=== PATIENT | female | born 1945 | race Asian ===

== ENCOUNTER 2019-02-05 10:57 | Emergency (ER) | payer OTHER ==
--- OUTSIDE RECORDS SUMMARY | 2019-02-05 10:59 | XMS REPORT ---
:1945 [facility] Address [address] [place] [address] Dr. Decker [address] [place] [id number] Care Team Providers Name Role Phone Unavailable Unavailable Unavailable Problems This patient has no known problems. Allergies, Adverse Reactions, Alerts This patient has no known allergies or adverse reactions. Medications This patient has no known medications.
--- OUTSIDE RECORDS SUMMARY | 2019-02-05 10:59 | XMS REPORT ---
:1945 Author Organization [employer] Care Team Providers Name Role Phone Cassia Muro Provider Role Unavailable Allergies, Adverse Reactions, Alerts Substance Reaction Event Type Amoxicillin Info Not Available Drug Allergy Tylenol # 3 Info Not Available Drug Allergy Lexiscan Info Not Available Drug Allergy Fluconazole Info Not Available Drug Allergy Problems Problem Type Condition Code Onset Dates Condition Status Assessment Acquired cyst of kidney N28.1 Active Problem History of breast cancer Z85.3 Active Assessment Microhematuria R31.29 Active Problem Thoracic aneurysm without mention I71.2 Active of rupture Problem Hematuria, microscopic R31.29 Active Problem Cystic thyroid nodule E04.1 Active Problem Low back pain M54.5 Active Problem Osteoarthritis of multiple joints, M15.9 Active unspecified osteoarthritis type Problem Family history of hypothyroidism Z83.49 Active Problem Other chronic pain G89.29 Active Problem Pain in left shoulder M25.512 Active Problem Leukopenia, unspecified type D72.819 Active Problem DDD (degenerative disc disease), M50.30 Active cervical Problem Microhematuria R31.29 Active Problem Multiple thyroid nodules E04.2 Active Problem Family history of Graves' disease Z83.49 Active Problem Urinary tract infection without N39.0 Active hematuria, site unspecified Problem Depression F32.9 Active Problem Abnormal weight loss R63.4 Active Problem Heart murmur R01.1 Active Problem Fatigue R53.83 Active Problem Allergic rhinitis J30.9 Active Problem Hyperlipidemia E78.5 Active Problem Benign essential HTN I10 Active Problem Osteoporosis screening Z13.820 Active Medications Medication Code Code Instructions Start End Date Status Dosage System Date Tramadol HCl ND 00990748088 50 MG Orally Active 1 tablet every 12 hours prn pain Letrozole ND 16823032726 2.5 MG Orally Active 1 tablet Once a day Lisinopril ND 22003491925 2.5 MG Orally Active 1 tablet Once a day Gemfibrozil ND 38930326647 600 MG Active TAKE 1 TABLET BY MOUTH EVERY DAY Lisinopril ND 23728839101 2.5 MG Orally Active 1 tablet twice a day Results No Known Results Summary Purpose eClinicalWorks Submission
--- OUTSIDE RECORDS SUMMARY | 2019-02-05 10:59 | XMS REPORT ---
:1945 Author Organization [employer] Care Team Providers Name Role Phone Perez, Na Provider Role Unavailable Allergies, Adverse Reactions, Alerts Substance Reaction Event Type Amoxicillin Info Not Available Drug Allergy Tylenol # 3 Info Not Available Drug Allergy Lexiscan Info Not Available Drug Allergy Fluconazole Info Not Available Drug Allergy Problems Problem Type Condition Code Onset Dates Condition Status Assessment Needs flu shot Z23 Active Assessment Leukopenia, unspecified type D72.819 Active Assessment DDD (degenerative disc disease), M50.30 Active cervical Assessment Osteoarthritis of multiple joints, M15.9 Active unspecified osteoarthritis type Assessment Microhematuria R31.29 Active Assessment Elevated serum globulin level R77.1 Active Assessment Acquired cyst of kidney N28.1 Active Assessment Multiple thyroid nodules E04.2 Active Assessment Hyperlipidemia E78.5 Active Problem History of breast cancer Z85.3 Active Assessment Benign essential HTN I10 Active Problem Thoracic aneurysm without mention I71.2 [...] Medications Medication Code Code Instructions Start End Status Dosage System Date Date Lisinopril [facility] 45016652540 2.5 MG Orally Active 1 tablet twice a day Letrozole [facility] 38578084535 2.5 MG Orally Active 1 tablet Once a day Lisinopril [facility] 96243083735 2.5 MG Orally Active 1 tablet Once a day Flonase [facility] 00085283720 50 MCG/ACT Inactive 1 spray in Nasally Once a each day nostril Tramadol HCl [facility] 54086869158 50 MG Orally Active 1 tablet every 12 hours prn pain Gemfibrozil [facility] 08456346070 600 MG Active TAKE 1 TABLET BY MOUTH EVERY DAY Gemfibrozil [facility] 61611573087 600 MG Orally Active 1 tablet once daily Results No Known Results Immunizations Vaccine Administration Date FluAD Nov 05, 2018 Summary Purpose eClinicalWorks Submission
--- NOTE | 2019-02-05 11:52 | ER ---
Nurse's Notes [facility] Name: Goldie Eduardo Age: 73 yrs Sex: Female : 1945 Arrival Date: 02/05/2019 Time: 10:59 Bed 19 Private MD: Diagnosis: Influenza due to certain identified influenza viruses;Cough Presentation: 02/05 11:08 Presenting complaint: Nonproductive cough, sinus congestion, headache, and subjective hb fever x 3 days. Denies SOB/N/V/D. Transition of care: patient was not received from another setting of care. Onset of symptoms was February 03, 2019. Risk Assessment: Do you want to hurt yourself or someone else? Patient reports no desire to harm self or others. Initial Sepsis Screen: Does the patient meet any 2 criteria? HR > 90 bpm. No. Patient's initial sepsis screen is negative. Does the patient have a suspected source of infection? No. Patient's initial sepsis screen is negative. Care prior to arrival: None. 11:08 Method Of Arrival: Ambulatory hb 11:08 Acuity: JEANNIE 4 hb Triage Assessment: 11:30 General: Behavior is calm, cooperative. ae4 Historical: - Allergies: 11:11 IV Contrast; hb 11:11 Codeine; hb 11:11 Amoxicillin; hb 11:11 Fluconazole; hb 11:11 Lexican; hb - Immunization history:: Adult Immunizations up to date. - Social history:: Smoking status: Patient/guardian denies using tobacco. - Ebola Screening: : No symptoms or risks identified at this time. Screenin:54 Abuse screen: Denies threats or abuse. Nutritional screening: No deficits noted. ae4 Tuberculosis screening: No symptoms or risk factors identified. Fall Risk None identified. Assessment: 11:27 General: Appears in no apparent distress. uncomfortable. Pain: Complains of pain in ae4 chest when coughing. Neuro: Level of Consciousness is awake, alert, obeys commands, Oriented to person, place, time, situation, Appropriate for age. Cardiovascular: Heart tones S1 S2 present Patient's skin is warm and dry. 11:27 Cardiovascular: Murmur present Rhythm is regular. Respiratory: Reports cough that is ae4 pain with cough. Respiratory: Airway is patent. GI: No signs and/or symptoms were reported involving the gastrointestinal system. Abdomen is round non-distended. : No signs and/or symptoms were reported regarding the genitourinary system. EENT: No signs and/or symptoms were reported regarding the EENT system. Derm: Skin is pale. Musculoskeletal: No signs and/or symptoms reported regarding the musculoskeletal system. Vital Signs: 11:11 BP 141 / 79; Pulse 97; Resp 16; Temp 98.9; Pulse Ox 97% on R/A; Weight 62.6 kg; Height hb 5 ft. 2 in. (157.48 cm); Pain 3/10; 11:54 BP 125 / 74; Pulse 89; Resp 18; Pulse Ox 96% on R/A; ae4 11:11 Body Mass Index 25.24 (62.60 kg, 157.48 cm) hb ED Course: 10:59 Patient arrived in ED. as 11:04 Cortez Mayberry FNP-C is [facility]. la1 11:04 Nino Alexandra MD is Attending Physician. la1 11:09 Triage completed. hb 11:10 Drew Joseph, RN is Primary Nurse. ae4 11:11 Arm band placed on. hb 11:27 Placed in gown. Bed in low position. Call light in reach. Side rails up X 1. Adult w/ ae4 patient. Pulse ox on. NIBP on. 11:59 Chest Pa And Lat (2 Views) XRAY In Process Unspecified. EDMS 12:17 No provider procedures requiring assistance completed. Patient did not have IV access ae4 during this emergency room visit. Administered Medications: No medications were administered Outcome: 11:51 Discharge ordered by . la1 12:17 Discharged to home ambulatory, with family. ae4 12:17 Condition: stable 12:17 Discharge instructions given to patient, Instructed on discharge instructions, follow up and referral plans. Demonstrated understanding of instructions, Prescriptions given X 1. 12:17 Instructed on medication usage. ae4 12:18 Patient left the ED. ae4 Signatures: Dispatcher [employer] EDMS Milka Aragon as Cortez Mayberry FNP-C [employer] TECH-Cla1 Sisi Roberson RN RN Drew Joseph, RN RN ae4 Corrections: (The following items were deleted from the chart) 12:01 11:59 Cardiovascular: Murmur present Rhythm is regular ae4 ae4 12:01 11:59 Respiratory: Airway is patent ae4 ae4 12: 11:59 GI: No signs and/or symptoms were reported involving the gastrointestinal system. ae4 Abdomen is round non-distended, ae4 :02 20:59 : No signs and/or symptoms were reported regarding the genitourinary system. ae4ae4 :02 20:59 EENT: No signs and/or symptoms were reported regarding the EENT system. ae4 ae4 :02 20:59 Respiratory: Reports cough that is pain with cough ae4 ae4 12:02 20:59 Derm: Skin is pale, ae4 ae4 :02 20:59 Musculoskeletal: No signs and/or symptoms reported regarding the musculoskeletal ae4 system. ae4
--- NOTE | 2019-02-05 11:53 | EDPHYS ---
Physician Documentation [facility] Name: Goldie Eduardo Age: 73 yrs Sex: Female : 1945 Arrival Date: 02/05/2019 Time: 10:59 Bed 19 Private MD: ED Physician Nino Alexandra HPI: 02/05 11:30 This 73 yrs old Female presents to ER via Ambulatory with complaints of Cough. la1 11:30 The patient or guardian reports cough, that is intermittent. Onset: The la1 symptoms/episode began/occurred 3 day(s) ago. Severity of symptoms: At their worst the symptoms were mild. Modifying factors: The symptoms are alleviated by nothing, the symptoms are aggravated by nothing. Associated signs and symptoms: Pertinent positives: rhinorrhea, Pertinent negatives: chest pain, fever, sore throat, vomiting. The patient has not experienced similar symptoms in the past. pt reports three day history of cough with occasional chills. Historical: - Allergies: 11:11 IV Contrast; hb 11:11 Codeine; hb 11:11 Amoxicillin; hb 11:11 Fluconazole; hb 11:11 Lexican; hb - Immunization history:: Adult Immunizations up to date. - Social history:: Smoking status: Patient/guardian denies using tobacco. - Ebola Screening: : No symptoms or risks identified at this time. ROS: 11:31 Constitutional: + chills la1 11:31 Eyes: Negative for injury, pain, redness, and discharge, Neck: Negative for injury, pain, and swelling, Cardiovascular: Negative for chest pain, palpitations, and edema, Abdomen/GI: Negative for abdominal pain, nausea, vomiting, diarrhea, and constipation, Back: Negative for injury and pain, : Negative for injury, bleeding, discharge, and swelling, MS/Extremity: Negative for injury and deformity, Neuro: Negative for headache, weakness, numbness, tingling, and seizure. 11:31 ENT: Positive for rhinorrhea. 11:31 Respiratory: Positive for cough. Exam: 11:32 Constitutional: This is a well developed, well nourished patient who is awake, alert, la1 and in no acute distress. Head/Face: Normocephalic, atraumatic. Eyes: Pupils equal round and reactive to light, extra-ocular motions intact. Periorbital areas with no swelling, redness, or edema. ENT: Nares patent. No nasal discharge, no septal abnormalities noted. Tympanic membranes are normal and external auditory canals are clear. Oropharynx with no redness, swelling, or masses, exudates, or evidence of obstruction, uvula midline. Mucous membranes moist. Neck: No Meningismus. Chest/axilla: Normal chest wall appearance and motion. Nontender with no deformity. No lesions are appreciated. 11:32 Respiratory: Lungs have equal breath sounds bilaterally, clear to auscultation No rales, rhonchi or wheezes noted. No increased work of breathing, no retractions or nasal flaring. Abdomen/GI: Soft, non-tender, with normal bowel sounds. No distension or tympany. No guarding or rebound. No evidence of tenderness throughout. MS/ Extremity: Pulses equal, no cyanosis. Neurovascular intact. Full, normal range of motion. Neuro: Awake and alert, GCS 15, oriented to person, place, time, and situation. . Normal gait. 11:32 Cardiovascular: Rate: normal, Pulses: Pulses are 3+ in right radial artery and left radial artery. Heart sounds: murmur, grade 2 over 6, pulmonic area, pt aware of murmur. Vital Signs: 11:11 BP 141 / 79; Pulse 97; Resp 16; Temp 98.9; Pulse Ox 97% on R/A; Weight 62.6 kg; Height hb 5 ft. 2 in. (157.48 cm); Pain 3/10; 11:54 BP 125 / 74; Pulse 89; Resp 18; Pulse Ox 96% on R/A; ae4 11:11 Body Mass Index 25.24 (62.60 kg, 157.48 cm) hb MDM: 11:04 Patient medically screened. la1 11:50 Data reviewed: vital signs, nurses notes, lab test result(s), I have discussed the la1 patient's presentation/case with the attending Emergency Department Physician; and as a result, I will discharge patient. Data interpreted: Pulse oximetry: on room air is 97 %. Interpretation: normal. Counseling: I had a detailed discussion with the patient and/or guardian regarding: the historical points, exam findings, and any diagnostic results supporting the discharge/admit diagnosis, lab results, the need for outpatient follow up, a family practitioner, to return to the emergency department if symptoms worsen or persist or if there are any questions or concerns that arise at home. 02/05 11:16 Order name: Flu; Complete Time: 11:50 la1 02/05 11:16 Order name: Chest Pa And Lat (2 Views) XRAY; Complete Time: 12:11 la1 Administered Medications: No medications were administered Disposition: 12:44 Co-signature as Attending Physician, Nino Alexandra MD I agree with the assessment and kdr plan of care. Disposition: 02/05/19 11:51 Discharged to Home. Impression: Influenza due to certain identified influenza viruses, Cough. - Condition is Stable. - Discharge Instructions: Influenza, Adult, [id number], Cough, Adult. - Prescriptions for Tessalon Perles 100 mg Oral Capsule - take 1 capsule by ORAL route every 8 hours As needed; 15 capsule. - Medication Reconciliation Form, Thank You Letter form. - Follow up: Private Physician; When: 2 - 3 days; Reason: Recheck today's complaints, Re-evaluation by your physician. - Problem is new. - Symptoms have improved. Signatures: Dispatcher [employer] EDNE Nino Alexandra MD MD kdr Cortez Mayberry, GIS PHYSICAL SCIENTIST-C GIS PHYSICAL SCIENTIST-Cla1 Sisi Roberson, NOREEN RN Drew Joseph RN RN ae4 Corrections: (The following items were deleted from the chart) 12:18 11:51 02/05/2019 11:51 Discharged to Home. Impression: Influenza due to certain ae4 identified influenza viruses; Cough. Condition is Stable. Forms are Medication Reconciliation Form, Thank You Letter, Antibiotic Education, Prescription Opioid Use. Follow up: Private Physician; When: 2 - 3 days; Reason: Recheck today's complaints, Re-evaluation by your physician. Problem is new. Symptoms have improved. la1
--- NOTE | 2019-02-05 12:07 | RAD REPORT ---
EXAM DESCRIPTION: RAD - Chest Pa And Lat (2 Views) - 02/05/2019 11:58 am CLINICAL HISTORY: COUGH, history of left breast cancer with mastectomy COMPARISON: February 2014 TECHNIQUE: PA and lateral views of the chest were obtained. FINDINGS: The lungs are clear. Left mastectomy surgical changes noted. Heart size is normal and nae tral vasculature is within normal limits. No pleural effusion or pneumothorax seen. No acute bony f inding noted. No aortic abnormality. No suspicious change from comparison. IMPRESSION: No acute cardiopulmonary process.
[2019-02-05 12:24] VITALS: TEMP 98.9
[2019-02-05 12:25] VITALS: BP 125/74; O2SAT 96
== END 2019-02-05 12:18 | disposition home or self-care (01) ==
LOC: ER 10:57
DX: J10.1 Influenza due to other identified influenza virus with other respiratory manifestations (principal); Z88.1 Allergy status to other antibiotic agents; Z88.5 Allergy status to narcotic agent; Z88.8 Allergy status to other drugs, medicaments and biological substances; Z91.041 Radiographic dye allergy status
CPT/HCPCS: 71046; 87804; 99283

== ENCOUNTER 2021-09-02 08:50 | Emergency (ER) | payer OTHER ==
--- OUTSIDE RECORDS SUMMARY | 2021-09-02 08:52 | XMS REPORT | Clinical Summary ---
:1945 Author Organization [facility] MD Ledezma [facility] Address [address] [place] [address] Care Team Providers Name Role Phone Johanna Espinosa MD Unavailable Connie Espinosa MD Unavailable MD Malorie Primary Care Provider Caitlyn Perez DO Unavailable Allergies Active Allergy Reactions Severity Noted Date Comments Amoxicillin Rash Low 10/19/2015 Codeine Other (See Comments) 10/19/2015 TYLENOL #3- pt reports makes h er feel "funny" Propoxyphene GI Intolerance 10/19/2015 N-Acetaminophen Fluconazole Rash Low 10/19/2015 Regadenoson Other (See Comments) 10/19/2015 Made ja ws, neck, back hurt, emilee ing, numbness Medications Medication Sig Dispensed Refills Start End Date Status Date fish oil-omega-3 Take 2 g by 0 A ctive fatty acids mouth twice 300-1,000 mg daily. Reported capsule on 01/25/2016 magnesium 250 mg Take 500 mg by 0 Active tab mouth daily. ascorbic acid, Take 1,000 mg by 0 Active vitamin C, (vitamin mouth daily. C) 1000 mg tablet lisinopril Take 2.5 mg by 0 Acti ve (PRINIVIL,ZESTRIL) mouth twice 2.5 mg tablet daily. gemfibrozil (LOPID) Take 600 mg by 0 Active 600 mg tablet mouth daily. TURMERIC ORAL Take 500 mg by 0 A ctive mouth daily. cyanocobalamin Take 1,000 mcg 0 Active (vitamin B-12) 1000 by mouth daily. mcg tablet calcium Take 2 tablets 0 Activ e carbonate-vitamin by mouth daily. D3 500 mg - 200 units (1,250 mg calcium carbonate) tablet zinc gluconate 50 Take 50 mg by 0 Active mg tablet mouth daily. vit A/vit C/vit Take by mouth 0 Active E/zinc/copper twice daily. (ICAPS AREDS ORAL) letrozole (Femara) Take 1 tablet 90 tablet 1 Active 2.5 mg (2.5 mg) by 1 tabletIndications: mouth daily. Intraductal carcinoma in situ of left breast, Estrogen receptor positive status (ER+) traMADol (ULTRAM) Take 50 mg by 0 Active 50 mg tablet mouth every 6 (six) hours as needed. calcium carbonate Take 600 mg by 0 0 Discontinued (OS-LILIYA) 600 mg mouth 2 (two) 22 (Not (1,500 mg) tablet times a day with Applicable) meals. multivitamin Take 1 tablet by 0 02/20/19 Discontinued (multivitamin) tab mouth daily. 22 (Not tablet Applicable ) diphenhydrAMINE Take 25 mg by 0 02/20/19 Discontinued (BENADRYL) 25 mg mouth every 8 22 (Not capsule (eight) hours as Maria E licable) needed for itching. Pt takes when taking Tramadol traMADol (ULTRAM) Take 50 mg by 0 11/24/19 Discontinued 50 mg tablet mouth as needed. 0 21 (Not Pt takes Applicable ) occasionally for back pain. letrozole (FEMARA) Take 2.5 mg by 0 Discontinued 2.5 mg tablet mouth daily. 22 (No t Applicable ) Active Problems Patient Care Coordination Note Formatting of this note might be differe nt from the original. Patient has 2 handicapped children. 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 Cancer Staging: Clinical stage from 01/10: Stage 0 (Tis (DCIS), N0, M0) - Signed by Johana Mayes MD on 01/25/2016 Pathologic stage from 01/25/2016: Stage 0 (Tis (DCIS), N0(i+), cM0) - Signed by Johana Mayes MD on 01/25/2016 Unspecified lump in unspecified breast 10/19/2015 Nipple discharge 10/19/2015 Multinodular goiter Family history of malignant neoplasm of thyroid Encounters Date Type Specialty Care Team Description 02/21/2021 Office Visit Breast Medical Leonela Rondon, Intraductal carcinoma in situ of left breast (Primary Dx); Oncology MD Estrogen receptor positive status (ER+) Hansa Rios PA 02/21/2021 Travel 02/20/2021 Telemedicine Endocrinology Jeremías Espana MD (Primary Dx) Cindy Christianson MD 02/13/2021 Ancillary Procedure Radiology Rowena Rios R, [employer] 02/13/2021 Travel 01/24/2021 Telephone Endocrinology Rere Hinojosa RN 11/23/2020 Office Visit Breast Surgical Jean, Intraductal Oncology MD Maria carcinoma in si tu of left breast 11/23/2020 Travel 11/16/2020 Ancillary Procedure Radiology Lucinda, Michelleuc ALESSIO Everett carcinoma in si tu of left breast 11/16/2020 Travel after 09/02/2020 Surgical History Surgery Date Site/Laterality Comments TOTAL ABDOMINAL HYSTERECTOMY W/ BILATERAL SALPINGOOPHORECTOMY BREAST BIOPSY COLONOSCOPY LA MASTECTOMY, PARTIAL 11/10/2015 Breast/Left Procedure : NEEDLE LOCALIZED, SEGME NTAL MASTECTOMY - NEE DLE LOC; Surgeon: Maria Pena MD; Location: [facility] OR; Service: BREAST LA BX/REMV,LYMPH NODE,DEEP AXILL 11/10/2015 Axilla/Left Procedure: SENTINEL NODE BIOPSY ; Surgeo n: Maria Pena MD; Lo cation: [facility]; Servic e: BREAST LA INTRAOPERATIVE SENTINEL LYMPH 11/10/2015 Breast/Left Procedure: INTRAOPERATIVE NODE ID W DYE INJECTION LYMPHATI C MAPPING; Surgeon: Maria Pena MD; Location: [facility] OR; Service: BREAST LA BREAST RECONSTRUC W OTHR 11/10/2015 Breast/Left Proc edure: RECONSTRUCTION TECHNIQ OF BREAST WITH O THER TECHNIQUE; Surg lilian: Isaak Grullon MD; Location: [facility]; Service: PLS - P LASTIC SURGERY LA MASTECTOMY, SIMPLE, COMPLETE 12/04/2015 Breast/Left Procedure: TOTAL MASTECTOMY; Lovely geon: Maria Pena MD; Location: [facility]; Service: BREAST Medical History Medical History Date Comments Arthritis Seasonal allergic rhinitis Aortic aneurysm without rupture Endometriosis Hypertension Hypercholesterolemia Diverticulosis of sigmoid colon Breast cancer Hyperlipidemia Irregular heart beat 2015 Cyst of breast -2015 Menopause 1987 Multinodular goiter 2017 H/O: miscarriage Family History Medical History Relation Name Comments Prostate cancer Brother dang Graves' disease Sister 1 Hypothyroidism Sister 2 Thyroid cancer Son Raul Eduardo PTC Relation Name Status Comments Brother dang Sister 1 Sister 2 Son Raul Eduardo Social History Tobacco Use Types Packs/Day Years Used Date Never Smoker 0 0 Smokeless Tobacco: Never Used Alcohol Use Standard Drinks/Week Comments No 0 (1 standard drink = 0.6 oz pure alcoho l) Sex Assigned at Date Recorded Not on file Job Start Date Occupation Industry Not on file Not on file Not on file Obstetrics History Para Term AB IAB SAB Ectopic Multiple Living Live Births 5 2 Date Outcome GA Total Labor/2nd/3rd Weight Sex Delivery Anes PTL Jimena A 1 A5 Name Clin Labor Para Para Comments Menarche 16 Parity 21 OCP use 5 yrs HRT use 14 yrs Breastfed for 3 mo Last Filed Vital Signs Vital Sign Reading Time Taken Comments Blood Pressure 122/69 02/21/2021 11:15 AM [employer] TRA[employer] OPERATOR Pulse 68 02/21/2021 11:15 AM [employer]AVY RAIL TRAIN OPERATOR Temperature 36.6 C (97.9 F) 02/21/2021 11:15 AM HEAVY RAIL TRAIN OPERATOR Respiratory Rate 18 02/21/2021 11:15 AM HEAVY RAIL TRAIN OPERATOR Oxygen Saturation - - Inhaled Oxygen Concentration - - Weight 62.9 kg (138 lb 10.7 oz) 02/21/2021 11:15 AM HEAVY RAIL TRAIN OPERATOR Height - - Body Mass Index 25.85 01/25/2020 1:18 PM HEAVY RAIL TRAIN OPERATOR Plan of Treatment Date Type Specialty Care Team Description 11/16/2021 Ancillary Procedure Radiology Hansa Rios PA [address], [place] [address] (Wo rk) 11/16/2021 Office Visit Oncology Hansa Rios PA [address], [place] [address] (Wo rk) Health Maintenance Due Date Last Done Comments COVID-19 Vaccination (3 - Pfizer risk 05/27/2020 04/29/2020 , 04/08/2020 series) Procedures Procedure Name Priority Date/Time Associated Diagnosis Comme nts THYROID STIMULATING Routine 02/13/2021 11:11 Multinodular goit er Results for this HORMONE AM HE[employer] RAIL TRAIN OPERATOR procedure are i n the results section. FREE THYROXINE Routine 02/13/2021 11:11 Multinodular goiter Re sults for this AM [employer] RAIL TRAIN OPERATOR procedure are i n the results section. US HEAD NECK SOFT Routine 02/13/2021 11:07 Multinodular goiter Results for this TISSUE AM HE[employer]Y RAIL TRAIN OPERATOR procedure are i n the results section. MAMMO DIGITAL Routine 11/16/2020 11:00 Intraductal carcinoma R esults for this DIAGNOSTIC RIGHT W AM CDT in situ of left proced ure are in BHARGAV breast the results section. after 09/02/2020 Results TSH (02/13/2021 11:11 AM HEAVY RAIL TRAIN OPERATOR) athologist Signature TSH 0.88 0.27 - 4.20 [facility] mcunit/mL [facility] Comment: Testing performed at [facility], [address], [place] [address] Specimen Anatomical Collection Method Collection Time Receive d Time (Source) Location / / Volume Laterality Blood 02/13/2021 11:11 02/13/2021 AM HEAVY RAIL TRAIN OPERATOR 2:45 PM HEAVY RAIL TRAIN OPERATOR Narrative [facility] - 02/13/2021 3: 21 PM HEAVY RAIL TRAIN OPERATOR Schedule US Neck And Labs At [facility] 1 To 7 Days Before Follow Up. Rowena Rios [employer]PER[employer] LAB BLOOD ORDERABLES Performing Organization Address City/State/[place] [address] [place] [address] Free T4 (02/13/2021 11:11 AM HEAVY RAIL TRAIN OPERATOR) athologist Signature T4 Free 1.19 0.93 - 1.70 [facility] ng/dL [facility] Comment: Testing performed at [facility], [address], [place] [address] Specimen Anatomical Collection Method Collection Time Receive d Time (Source) Location / / Volume Laterality Blood 02/13/2021 11:11 02/13/2021 AM HEAVY RAIL TRAIN OPERATOR 2:45 PM HEAVY RAIL TRAIN OPERATOR Narrative [facility] - 02/13/2021 3: 21 PM HEAVY RAIL TRAIN OPERATOR Schedule US Neck And Labs At [facility] 1 To 7 Days Before Follow Up. Rowena Rios [employer]PER[employer] LAB BLOOD ORDERABLES Performing Organization Address City/State/[place] [id number] [place] [address] US Head Neck Soft Tissue (02/13/2021 11:07 AM HEAVY RAIL TRAIN OPERATOR) Anatomical Region Laterality Modality Head, Neck Ultrasound Specimen (Source) Anatomical Collection Method Collection Time Re ceived Time Location / / Volume Laterality 02/13/2021 1:56 PM HEAVY RAIL TRAIN OPERATOR Impressions 02/13/2021 2:09 PM HEAVY RAIL TRAIN OPERATOR 1. Stable multinodular thyroid. 2. No adenopathy. Narrative 02/13/2021 2:09 PM HEAVY RAIL TRAIN OPERATOR FULL RESULT: Examination: US HEAD NECK SOFT TISSUE on 02/13/2021 11:07 AM Clinical History: Multinodular goiter Indication: Mass Comparison: Ultrasound, 01/25/20 Technique: Real-time ultrasound examinat ion of the neck soft tissues was performed. FINDINGS: Right Thyroid Lobe/Bed: Multiple hypoech oic nodules are stable relative to the prior exam. Right mid thyroid nodule measures 0.6 x 0.5 x 0.6 cm and is stable. Mixed cystic/solid nodule in the isthmus measures 1.5 x 0.8 x 1.5 cm. Left Thyroid Lobe/Bed: Left inferior kendrick e spongiform nodule is stable and measures 0.8 x 0.5 x 0.7 cm. Suprasternal and Superior Mediastinal: C lear. Right Lateral Neck: Clear. Left Lateral Neck: Clear. Submental to Cricoid: Clear. Procedure Note Latasha Farley MD - 02/13/2021 FULL RESULT: Examination: US HEAD NECK SOFT TISSUE on 02/13/2021 11:07 AM Clinical History: Multinodular goiter Indication: Mass Comparison: Ultrasound, 01/25/20 Technique: Real-time ultrasound examinat ion of the neck soft tissues was performed. FINDINGS: Right Thyroid Lobe/Bed: Multiple hypoech oic nodules are stable relative to the prior exam. Right mid thyroid nodule measures 0.6 x 0.5 x 0.6 cm and is stable. Mixed cystic/solid nodule in the isthmus measures 1.5 x 0.8 x 1.5 cm. Left Thyroid Lobe/Bed: Left inferior kendrick e spongiform nodule is stable and measures 0.8 x 0.5 x 0.7 cm. Suprasternal and Superior Mediastinal: C lear. Right Lateral Neck: Clear. Left Lateral Neck: Clear. Submental to Cricoid: Clear. IMPRESSION: 1. Stable multinodular thyroid. 2. No adenopathy. Rowena Rios [employer]PERVISOR IMG US ORDERABLES Mammography Digital Diagnostic Right with Bhargav (11/16/2020 11:00 AM CDT) Anatomical Region Laterality Modality Breast Right Mammography Specimen (Source) Anatomical Collection Method Collection Time Re ceived Time Location / / Volume Laterality 11/16/2020 11:07 AM CDT Impressions 11/16/2020 11:07 AM CDT There is no mammographic evidence of malignancy. Follow-up mammogram in 1 year is recomme nded. BI-RADS Category 2: Benign Finding(s) Narrative 11/16/2020 11:07 AM CDT CLINICAL INDICATION: Patient is a 75 year old female and is s een for history of breast cancer MAMMO DIGITAL DIAGNOSTIC RIGHT W BHARGAV Digital Mammogram evaluated with Compute r Aided Detection (CAD). COMPARISON: The present examination has been compare d to prior imaging studies performed at [facility] on 10/19/2015, 10/22/2016, 10/29/2017, 11/12/2018 and 11/17/2019. FINDINGS: The breast is extremely dense, which low ers the sensitivity of mammography. Vascular calcifications are present. No suspicious mass, asymmetry, calcification, or distortion is seen. The patient was notified of the results and their significance at the completion of today's imaging. Appropriate imaging follow up is recommended given t his patient's prior history of breast cancer. Tomosynthesis performed in CC and MLO pr ojections. Procedure Note Americo Castaneda MD - 11/16/2020 CLINICAL INDICATION: Patient is a 75 year old female and is s een for history of breast cancer MAMMO DIGITAL DIAGNOSTIC RIGHT W BHARGAV Digital Mammogram evaluated with Compute r Aided Detection (CAD). COMPARISON: The present examination has been compare d to prior imaging studies performed at [facility] on 10/19/2015, 10/22/2016, 10/29/2017, 11/12/2018 and 11/17/2019. FINDINGS: The breast is extremely dense, which low ers the sensitivity of mammography. Vascular calcifications are present. No suspicious mass, asymmetry, calcification, or distortion is seen. T he patient was notified of the results and their significance at the completion of today's imaging. Appropriate imaging follow up is recommended given t his patient's prior history of breast cancer. Tomosynthesis performed in CC and MLO pr ojections. IMPRESSION: There is no mammographic evidence of mal ignancy. Follow-up mammogram in 1 year is recomme nded. BI-RADS Category 2: Benign Finding(s) Maria Pena MD IMG MAMMOGRAPHY ORDERABLES after 09/02/2020 Insurance Payer Benefit Plan / Subscriber ID Effective Dates Phone Addre ss Type Group AETNA MEDICARE AETNA MEDICARE [id number] 2021-Presen [address] [place] [address] Advance Directives Code Status Date Activated Date Inactivated Comments Full Code 12/04/2015 2:34 PM 12/05/2015 3:50 PM Full Code 11/10/2015 1:30 PM 11/10/2015 7:40 PM Care Teams Vocational Rehabilitation Consultant Relationship Specialty Start Date End Date Johanna Espinosa, PCP - External Obstetrics/Gynecology 10/11/15 MD Referring Johanna Espinosa, PCP - External Follow Obstetrics/Gynecology MD Christiano Chaudhari Jose Espana MD PCP - General Endocrinology 10/07/[address] [place] [address] [phone] Taya Perez, DO Family Practice 11/19/[address] [place] [address] [place] [address]
--- OUTSIDE RECORDS SUMMARY | 2021-09-02 08:53 | XMS REPORT | Continuity of Care Document ---
:1945 Author Organization [facility] t Address [address] [place] [address] Care Team Providers Name Role Phone [phone] Primary Care Physician Unavailable Harshil Perez Attending Clinician Unavailable Alcon KOENIG Attending Clinician Audra Espinosa Attending Clinician ALCON Attending Clinician Unavailable Scot KOENIG Attending Clinician Meghan KOENIG Attending Clinician SCOT Attending Clinician Unavailable Cole White Attending Clinician Cole RIOS Attending Clinician Unavailable Ashish SORTO Attending Clinician Unavailable ROLF Attending Clinician Unavailable Rolf KOENIG Attending Clinician Lucinda MCCALLUM Attending Clinician LUCINDA Attending Clinician Unavailable Caitlyn Perez Attending Clinician Doctor Unassigned, Name Attending Clinician Unavailable Payers Payer Name Policy Type Policy Number Effective Date Expiration Date S benji [employer] MEDICARE ADV [id number] 2017 00:00:00 Problems Condition Condition Condition Status Onset Resolution Last Treating Co mments Source Name Details Category Date Date Treatment Clinician Date Inflammati Inflammati Disease Active U nivers on of on of 07-21 ity of joint of joint of 00:00: [place] both hands both hands 00 MD Tomy go[facility]al [facility] Erythema Erythema Disease Active Unive rs of vagina of vagina 07-21 ity of 00:00: MD Tomy goyal [facility] Osteopenia Osteopenia Disease Active U nivers 07-21 ity of 00:00: MD Tomy goyal [facility] Carcinoma Carcinoma Disease Active Uni vers in situ of in situ of 10-31 it y of left left 00:00: [place] breast breast 00 MD Tomy goyal [facility] Unspecifie Unspecifie Disease Active U nivers d lump in d lump in 10-18 ity of unspecif[place] breast MD Tomy goyal [facility] Nipple Nipple Disease Active Univers discharge discharge 10-18 ity of 00:00: 00 MD Tomy goyal [facility] Multinodul Multinodul Disease Active U nivers ar goiter ar goiter ity of [place] MD Tomy goyal [facility] Family Family Disease Active Univers history of history of it [place] of malignant malignant [place] neoplasm neoplasm of thyroid of thyroid An derso [facility] Allergies, Adverse Reactions, Alerts Allergy Allergy Status Severity Reaction(s) Onset Inactive Treating Comm ents Source Name Type Date Date Clinician PROPOXYP DRUG Active Rash Univers HENE 11-04 ity of N-ACETAM 00:00: [place] INOPHEN 00 [facility] REGADENO DRUG Active EP Effects Univ ers SON INGREDI 11-04 ity of 00:00: [place] 00 [facility] ACETAMIN DRUG Active Unknown-Cmnt Un johanna OPHEN-CO 11-04 ity of DEINE 00:00: 00 [facility] Amoxicil Propensi Active Rash Romeo s tyler ty to 10-18 ity of adverse 00:00: [place] reaction 00 MD nicole Huitron [facility] Codeine Propensi Active Other (See TYLENOL Un johanna ty to Comments) 10-18 #3- pt ity of adverse 00:00: reports [place] reaction 00 makes her MD rivera feel Anderso "funny" [facility] Propoxyp Propensi Active GI Univer s hene ty to Intolerance 10-18 ity o f N-Acetam adverse 00:00: [place] inophen reaction 00 MD nicole goyal [facility] Fluconaz Propensi Active Rash Univer s ole ty to 10-18 ity of adverse 00:00: [place] reaction 00 MD nicole goyal [facility] Regadeno Propensi Active Other (See Made Un johanna son ty to Comments) 10-18 jaws, ity of adverse 00:00: neck, [place] reaction 00 back MD nicole castillo, Tomy shaking, n numbness [facility] AMOXICIL DRUG Active Low Rash Univers TYLER INGREDI 10-18 ity of 00:00: [place] 00 [facility] FLUCONAZ DRUG Active Low Rash Univers OLE INGREDI 10-18 ity of 00:00: [place] 00 [facility] Tylenol Adverse Active Info Not Common # 3 Reaction Available [facility] Lexiscan Adverse Active Info Not Commo n Reaction Available [facility] Fluconaz Adverse Active Info Not Commo n ole Reaction Available [facility] Amoxicil Adverse Active Info Not Commo n tyler Reaction Available [facility] Aspirin Adverse Active Info Not Common Reaction Available [facility] Family History Family Member Diagnosis Comments Start Date Stop Date Source Natural brother Prostate cancer [facility] [place] [facility] Natural sister Graves' disease [facility] Natural sister Hypothyroidism [facility] Natural son Thyroid cancer [facility] [place] [facility] Social History Social Habit Start Date Stop Date Quantity Comments Source Alcohol intake 2021-02-20 2021-02-20 Current University of 00:00:00 00:00:00 non-drinker of Sury shah alcohol (finding) [facility] Tobacco use and 2018-10-14 2018-10-14 Smokeless tobacco Un iversity of exposure 00:00:00 00:00:00 non-user Sury azar [facility] Sex [birth year] Universit y of 00:00:00 00:00:00 Sury Ledezma [facility] Smoking Status Start Date Stop Date Source Never smoked tobacco [facility] Medications Ordered Filled Start Stop Current Ordering Indication Dosage Frequency Signature Comments Components Source Medication Medication Date Date Medication? Clinician (SIG) Name Name traMADol Yes 50mg Take 50 mg Uni vers (ULTRAM) 50 1-12 by mouth ity of mg tablet 20:48: every 6 [place] 00 (six) MD hours as Anderso needed. [facility] fish Yes 2g Take 2 g Univers oil-omega-3 1-12 by mouth ity of fatty acids 11:29: twice [place] 300-1,000 42 daily. mg capsule Reported [place] so on n 01/25/2016 [facility] ascorbic Yes 1000mg Take 1,000 U nivers acid, 1-12 mg by ity of vitamin C, 11:29: mouth [place] (vitamin C) 42 daily. 1000 mg Anderso tablet [facility] lisinopril Yes 2.5mg Take 2.5 Un johanna (PRINIVIL,Z 1-12 mg by ity of ESTRIL) 2.5 11:29: mouth [place] mg tablet 42 twice MD daily. Tomy [facility] gemfibrozil Yes 600mg Take 600 U nivers (LOPID) 600 1-12 mg by ity of mg tablet 11:29: mouth [place] 42 daily. MD Tomy goyal [facility] TURMERIC Yes 500mg Take 500 Univ ers ORAL 1-12 mg by ity of 11:29: mouth [place] 42 daily. MD Tomy goyal [facility] cyanocobala Yes 1000ug Take 1,000 Univers min 1-12 mcg by ity of (vitamin 11:29: mouth [place] B-12) 1000 42 daily. mcg tablet Tomy [facility] calcium Yes 2{tbl} Take 2 Univer s carbonate-v 1-12 tablets by it y of itamin D3 11:29: mouth [place] 500 mg - 42 daily. 200 units Tomy (1,250 mg n calcium Cancer carbonate) Mission tablet zinc Yes 50mg Take 50 mg Univers gluconate 1-12 by mouth ity of 50 mg 11:29: daily. [place] tablet 42 MD Tomy goyal [facility] vit A/vit Yes Take by Unive rs C/vit 1-12 mouth ity of E/zinc/alla 11:29: twice [place] er (ICAPS 42 daily. MD MCCOLLUM ORAL) Tomy goyal [facility] magnesium Yes 500mg Take 500 Uni vers 250 mg tab 1-11 mg by ity of 12:34: mouth [place] 10 daily. MD Tomy goyal [facility] multivitami 2021- No 1{tbl} Take 1 U nivers n 02-20 tablet by ity of (multivitam 12:34: 00:00 [place] in) tab 03 :00 daily. tablet Tomy goyal [facility] letrozole No 2.5mg Take 2.5 Un johanna (FEMARA) 02-20 mg by ity of 2.5 mg 12:33: 00:00 mouth [place] tablet 55 :00 daily. MD Tomy goyal [facility] diphenhydrA 2021- No 25mg Take 25 mg Univers MINE 02-20 by mouth ity of (BENADRYL) 12:33: 00:00 every 8 Jim as 25 mg 41 :00 (eight) capsule hours as T[place] needed for n itching. Cancer Pt takes Center when taking Tramadol calcium 2021- No 600mg Take 600 Univ ers carbonate 02-20 mg by ity of (OS-LILIYA) 12:33: 00:00 mouth 2 [place] 600 mg 23 :00 (two) (1,500 mg) times a Derrick o tablet day with n meals. [facility] letrozole Yes Estrogen 2.5mg Take 1 U nivers (Femara) 6-17 receptor tablet ity o f 2.5 mg 00:00: positive (2.5 mg) Jim as tablet 00 status by [facility] tra[facility] 2020- No 50mg Take 50 mg Un johanna (ULTRAM) 50 5-20 10-14 by mouth ity of mg tablet 00:00: 00:00 [place] needed. [place] 00 :00 Pt takes MD annette Huitron ly for n back pain. [facility] Tramadol Tramadol 2019- Yes Nathan 1 tablet Common HCl HCl 606 [place] [facility] 00:00: - [facility] 00 [facility] Lisinopril Lisinopril Yes Nathan 1 tablet Common [place] [facility] Letrozole Letrozole Yes Nathan 1 tablet Common [place] [facility] Gemfibrozil Gemfibrozil Yes Nathan TAKE 1 [facility] [place] TABLET BY [facility] EVERY DAY [facility] Gemfibrozil Gemfibrozil Yes Nathan 1 tablet [facility] [place] [facility] Lisinopril Lisinopril Yes Nathan TAKE 1 [facility] [place] TABLET BY [facility] TWICE A [facility] Vitamin B Vitamin B Yes Nathan not Co mmon Complex Complex [place] defined [facility] Turmeric Turmeric Yes Nathan not Comm on [place] defined [facility] Vitamin D Vitamin D Yes Nathan not Co mmon [place] defined [facility] Vitamin C Vitamin C Yes Nathan not Co mmon [place] defined [facility] Fish Oil Fish Oil Yes Nathan not Comm on [place] defined [facility] IBUPROFEN IBUPROFEN Yes Nathan not Co mmon [place] defined [facility] Magnesium Magnesium Yes Nathan not Co mmon [place] defined [facility] Immunizations Ordered Immunization Filled Immunization Date Status Commen ts Source Name Name FluAD FluAD 2018-11-05 Completed [facility] 00:00:00 [facility] Vital Signs Vital Name Observation Time Observation Value Comments Source Systolic blood 2021-02-21 17:15:09 122 mm[Hg] Univer sity of pressure [facility] Diastolic blood 2021-02-21 17:15:09 69 mm[Hg] Unive rsity of pressure [facility] Heart rate 2021-02-21 17:15:09 68 /min [facility] Body temperature 2021-02-21 17:15:09 36.61 Dinorah [facility] Respiratory rate 2021-02-21 17:15:09 18 /min [facility] Body weight 2021-02-21 17:15:09 62.9 kg [facility] MD [facility] BMI 2021-02-21 17:15:09 25.85 kg/m2 [facility] MD [facility] Procedures Procedure Date / Time Performing Clinician Source Performed FREE THYROXINE 2021-02-13 17:11:00 Rowena Rios [facility] THYROID STIMULATING 2021-02-13 17:11:00 Rowena Rios [facility] HORMONE [facility] US HEAD NECK SOFT 2021-02-13 17:07:00 Rowena Rios [facility] TISSUE [facility] MAMMO DIGITAL 2020-11-16 16:00:00 Steffanie Jane [place] o [facility] [place] DIAGNOSTIC RIGHT W ZECHARIAH L[facility] Plan of Care Planned Activity Planned Date Details Comments Source Future Scheduled 2021-08-03 COVID-19 Vaccination [facility] Test 04:38:22 (3 - Pfizer risk [facility] Cancer series) [code = Center COVID-19 Vaccination (3 - Pfizer risk series)] Encounters Start End Encounter Admission Attending Care Care Encounter Source Date/Time Date/Time Type Type Clinicians Facility Department ID 2021-08-07 Outpatient Perez, Na STLMLC STLMLC [id number] 2 Common 08:20:01 [facility] 2021-08-06 Outpatient Perez, Na STLMLC STLMLC [id number] 2 Common 15:19:00 [facility] 2021-07-18 Outpatient Perez, Na STLMLC STLMLC [id number] 2 Common 06:47:00 [facility] 2021-05-07 Outpatient Perez, Na STLMLC STLMLC [id number] 2 Common 16:33:01 [facility] 2021-03-07 Outpatient Perez, Na STLMLC STLMLC [id number] 2 Common 14:26:22 [id number] [facility] 2021-03-07 Outpatient Perez, Na STLMLC STLMLC [id number] 2 Common 14:25:50 [id number] [facility] 2021-03-07 Outpatient Perez, Na STLMLC STLMLC [id number] 2 Common 13:48:21 [id number] [facility] 2021-03-07 Outpatient Perez, Na STLMLC STLMLC [id number] 2 Common 13:26:33 [id number] [facility] 2021-03-07 Outpatient Perez, Na STLMLC STLMLC [id number] 2 Common 12:09:19 [id number] [facility] 2021-03-07 Outpatient Perez, Na STLMLC STLMLC [id number] 2 Common 12:06:43 [id number] [facility] 2021-03-07 Outpatient Perez, Na STLMLC STLMLC [id number] 2 Common 11:51:44 [id number] [facility] 2021-03-07 Outpatient Perez, Na STLMLC STLMLC [id number] 2 Common 11:45:44 [id number] [facility] 2021-03-07 Outpatient Perez, Na STLMLC STLMLC [id number] 2 Common 11:38:29 [id number] [facility] 2021-03-07 Outpatient Perez, Na STLMLC STLMLC [id number] 2 Common 11:07:03 [id number] [facility] 2021-08-06 2021-08-06 ambulatory STLMLC STLMLC [id number] Common 00:00:00 00:00:00 [facility] 2021-07-17 2021-07-17 ambulatory STLMLC STLMLC [id number] Common 00:00:00 00:00:00 [facility] 2021-07-16 2021-07-16 ambulatory STLMLC STLMLC [id number] Common 00:00:00 00:00:00 [facility] 2021-07-16 2021-07-16 ambulatory STLMLC STLMLC [id number] Common 00:00:00 00:00:00 [facility] 2021-05-31 2021-05-31 ambulatory STLMLC STLMLC [id number] Common 00:00:00 00:00:00 [facility] 2021-02-21 2021-02-21 Office Leonela Rondon 1.2.840.1 [id number] [facility] 11:40:00 12:00:00 Visit Hansa Rios 87603.1.1 ity of 3.412.2.7 [place] .3.847311 MD Posada8 [facility] 2021-02-21 2021-02-21 Outpatient JOSEFINA RONDON MDA MDA [id number] 11:10:59 11:10:59 LEONELA goyal 2021-02-21 2021-02-21 Travel 1.2.840.1 [id number] [facility] 00:00:00 00:00:00 [id number] 350.1.13.41 ity of 3.412.2.7 2.[place].7.3.698 [place] .3.967211 084.8 MD Posada8 [facility] 2021-02-20 2021-02-20 Telemedici Jose Ellison 1.2.840.1 [id number] [facility] 15:30:00 15:30:00 Cindy Nation 78053.1.1 ity of 3.412.2.7 [place] .3.659759 MD Posada8 [facility] 2021-02-20 2021-02-20 Outpatient JOSEFINA ELLISON MDA [facility] [id number] 14:57:13 15:03:33 JOSE goyal 2021-02-13 2021-02-13 Ancillary Gabriel 1.2.840.1 [id number] [facility] 10:00:00 11:00:00 Procedure Rowena Galvan 61286.1.1 i ty of 3.412.2.7 [place] .3.880352 MD [facility]8 [facility] 2021-02-13 2021-02-13 Outpatient JOSEFINA RIOS MDA MDA [id number] 10:11:38 10:11:38 ROWENA goyal 2021-02-13 2021-02-13 Outpatient JOSEFINA RIOS EJ MDA [id number] 10:11:15 10:11:15 ROWENA goyal 2021-02-13 2021-02-13 Travel 1.2.840.1 [id number] [id number] Univers 00:00:00 00:00:00 30931.1.1 350.1.13.41 ity of 3.412.2.7 2.2.7.3.698 [place] .3.283222 084.8 .8 [facility] 2021-01-29 2021-01-29 ambulatory STLMLC STLMLC [id number] Common 00:00:00 00:00:00 [facility] 2021-01-24 2021-01-24 Telephone Hinojosa, 1.2.840.1 [id number] Univers 00:00:00 00:00:00 Curtisha 26213.1.1 ity of 3.412.2.7 [place] .3.972319 .8 [facility] 2021-01-11 2021-01-11 ambulatory STLMLC STLMLC [id number] Common 00:00:00 00:00:00 [facility] 2021-01-08 2021-01-08 ambulatory STLMLC STLMLC [id number] Common 00:00:00 00:00:00 [facility] 2020-11-23 2020-11-23 Outpatient JOSEFINA BANSAL MDA MDA [id number] 10:03:13 11:23:23 MARIA goyal 2020-11-23 2020-11-23 Office Rolf, 1.2.840.1 [id number] [facility] 10:00:00 11:23:23 Visit Maria 32300.1.1 ity of 3.412.2.7 [place] .3.531356 MD Posada8 [facility] 2020-11-23 2020-11-23 Travel 1.2.840.1 [id number] Univers 00:00:00 00:00:00 10545.1.1 350.1.13.41 ity of 3.412.2.7 2.2.7.3.698 [place] .3.370803 084.8 .8 [facility] 2020-11-16 2020-11-16 Ancillary Brandan Jane.2.840.1 [id number] [facility] 10:00:00 11:00:00 Procedure Steffanie 96072.1.1 i ty of 3.412.2.7 [place] .3.202700 .8 [facility] 2020-11-16 2020-11-16 Outpatient EL LUCINDA [facility] [id number] 10:19:55 10:19:55 STEFFANIEHAYDEN Ledezma [facility] 2020-11-16 2020-11-16 Travel 1.2.840.1 [id number] [id number] Univers 00:00:00 00:00:00 94164.1.1 350.1.13.41 ity of 3.412.2.7 2.2.7.3.698 [place] .3.817896 084.8 .8 [facility] 2020-09-28 2020-09-28 Outpatient STLMLC STLMLC [id number] Common 00:00:00 00:00:00 [facility] 2020-08-02 2020-08-02 Outpatient STLMLC STLMLC [id number] Common 00:00:00 00:00:00 [facility] 2020-05-04 2020-05-04 Outpatient STLMLC STLMLC [id number] Common 00:00:00 00:00:00 [facility] 2020-04-29 2020-04-29 Outpatient [facility] [id number] Univers 13:25:00 13:25:00 [id number] ity of [facility] 2020-04-29 2020-04-29 Outpatient [facility] [id number] Univers 13:25:00 13:25:00 ity [facility] 2020-04-08 2020-04-08 Outpatient [facility] [id number] Univers 13:05:00 13:05:00 ity of [facility] 2020-01-13 2020-01-13 Outpatient STLMLC STLMLC [id number] Common 00:00:00 00:00:00 [facility] 2020-01-12 2020-01-12 Outpatient STLMLC STLMLC [id number] Common 00:00:00 00:00:00 [facility] 2020-01-03 2020-01-03 Outpatient STLMLC STLMLC [id number] Common 00:00:00 00:00:00 [facility] 2019-12-23 2019-12-23 Outpatient STLMLC STLMLC [id number] Common 00:00:00 00:00:00 [facility] 2019-11-29 2019-11-29 Outpatient STLMLC STLMLC [id number] Common 00:00:00 00:00:00 [facility] 2019-11-15 2019-11-15 Outpatient STLMLC STLMLC [id number] Common 00:00:00 00:00:00 [facility] 2019-11-09 2019-11-09 Outpatient STLMLC STLMLC [id number] Common 00:00:00 00:00:00 [facility] 2019-11-09 2019-11-09 Outpatient STLMLC STLMLC [id number] Common 00:00:00 00:00:00 [facility] 2019-10-26 2019-10-26 [facility] [id number] Common 09:39:00 09:39:00 [facility] 2019-10-25 2019-10-25 [facility] [id number] Common 15:46:00 15:46:00 t [facility] 2019-10-25 2019-10-25 Out[facility] [id number] Common 13:30:00 13:30:00 t [facility] 2019-09-30 2019-09-30 [facility] [id number] Common 10:40:00 10:40:[address] [facility] 2019-08-23 2019-08-23 Letter Taya Perez 1.2.840.114 [id number] 00:00:00 00:00:00 (Out) [facility] 350.1.13.10 [facility] 4.2.7.2.686 [id number] 2019-08-11 2019-08-11 Outpatient JOSEFINA RONDON MDA MDA [id number] 11:44:27 11:44:27 LEONELA goyal 2019-08-02 2019-08-02 Orders Doctor MALDONADO 1.2.840.114 [id number] 00:00:00 00:00:00 Only Unassigned, LUIS A 350.1.13.10 [place] [facility] 4.2.7.2.686 [id number] 2019-06-30 2019-06-30 [facility] [id number] Common 10:40:00 10:40:[address] [facility] 2019-04-05 2019-04-05 [facility] [id number] Common 16:47:00 16:47:[address] Sp[address] [facility] 2019-02-09 2019-02-09 [facility] [id number] Common 09:40:00 09:40:[address] Sp[address] [facility] 2019-01-13 2019-01-13 [facility] [id number] Common 09:00:00 09:00:00 t Specialty/U Sp gilmar Specialty rology - [facility]rology Clinic [facility] 2018-11-05 2018-11-05 [facility] [id number] Common 10:20:00 10:20:[address] Sp[address] [facility] 2018-09-24 2018-09-24 Orders Doctor MALDONADO 1Albino2.840.114 [id number] 00:00:00 00:00:00 Only Unassigned, LUIS A 350.1.13.10 [place] [facility] 4.2.7.2.686 [id number] 2018-07-16 2018-07-16 Out[facility] [id number] Common 08:20:00 08:20:[address] Sp[address] [facility] 2018-03-20 2018-03-20 [facility] [id number] Common 10:30:00 10:30:[address] Sp[address] [facility] 2018-03-05 2018-03-05 Out[facility] [id number] Common 16:27:00 16:27:00 t Specialty/U Sp gilmar Specialty rology - [facility] /Urology Clinic [facility] 2017-11-24 2017-11-24 [facility] [id number] Common 09:00:00 09:00:[address] Sp[address] [facility] 2017-09-15 2017-09-15 [facility] [id number] Common 10:30:00 10:30:[address] Sp[address] Drive [facility] 2017-08-19 2017-08-19 [facility] [id number] Common 14:30:00 14:30:[address] Sp[address] Drive [facility] 2017-08-16 2017-08-16 [facility] [id number] Common 17:16:00 17:16:[address] Sp[address] Drive [facility] 2017-08-11 2017-08-11 [facility] [id number] Common 11:28:00 11:28:[address] Sp[address] [facility] Results This patient has no known results.
[2021-09-02 09:43] LABS: Absolute Lymphocytes (CBC) 0.7 K/uL (0.7-4.9); Hematocrit 39.3 % (36.0-45.0); Lymphocytes % 11.3 % (15.3-44.8); MCV 94.8 fL (80-100); MPV 7.2 fL (7.6-11.3); RBC Red Blood Cell Count 4.15 M/uL (3.86-4.86)
[2021-09-02] MEDS ORDERED: BEBTELOVIMAB 175 MG/2 ML VIAL IV ONE (09:56)
[2021-09-02 10:01] LABS: C-Reactive Protein 3.12 mg/L (<3.00); Ferritin 108.3 ng/mL (8-388); Potassium 3.8 mmol/L (3.5-5.1)
--- NOTE | 2021-09-02 10:57 | EDPHYS ---
Physician Documentation [facility] Name: Goldie Eduardo Age: 76 yrs Sex: Female : 1945 Arrival Date: 09/02/2021 Time: 08:51 Bed 17 Private MD: ED Physician Ling Batres HPI: 09/02 09:20 This 76 yrs old Female presents to ER via Ambulatory with complaints of covid+, cp wants script. 09:20 The patient or guardian reports cough, that is intermittent. cp 09:20 Onset: The symptoms/episode began/occurred 4 day(s) ago. Associated signs and symptoms: cp Pertinent negatives: chest pain, diarrhea, fever, vomiting. Patient reports close contact with son who recently tested positive for COVID-19 and having positive home test this morning. Historical: - Allergies: 09:00 Amoxicillin; ap3 09:00 Codeine; ap3 09:00 Fluconazole; ap3 09:00 IV contrast; ap3 09:00 Lexican; ap3 - Home Meds: 09:00 Lisinopril Oral twice a day [Active]; ap3 - PMHx: 09:00 Hypertensive disorder; Hypercholesterolemia; ap3 - Immunization history:: Client reports receiving the 2nd dose of the Covid vaccine. - Social history:: Smoking status: Patient denies any tobacco usage or history of. ROS: 09:25 Constitutional: Negative for body aches, chills, fever, poor PO intake. cp 09:25 Eyes: Negative for injury, pain, redness, and discharge. cp 09:25 Cardiovascular: Negative for chest pain, edema, palpitations. 09:25 Respiratory: Positive for cough, with no reported sputum. cp Exam: 09:30 Constitutional: The patient appears in no acute distress, alert, awake, non-toxic, well cp developed, well nourished. 09:30 Head/Face: Normocephalic, atraumatic. cp 09:30 Eyes: Periorbital structures: appear normal, Conjunctiva: normal, no exudate, no injection, Sclera: no appreciated abnormality, Lids and lashes: appear normal, bilaterally. 09:30 ENT: External ear(s): are unremarkable, Nose: is normal, Mouth: Lips: moist, Oral mucosa: moist, Posterior pharynx: Airway: no evidence of obstruction, patent. 09:30 Neck: ROM/movement: is normal, is supple, without pain, no range of motions limitations. 09:30 Chest/axilla: Inspection: normal. 09:30 Cardiovascular: Rate: normal, Rhythm: regular. 09:30 Respiratory: the patient does not display signs of respiratory distress, Respirations: normal, no use of accessory muscles, no retractions, labored breathing, is not present, Breath sounds: are clear throughout, no decreased breath sounds, no stridor, no wheezing. 09:30 Abdomen/GI: Exam negative for discomfort, distension, guarding, Inspection: abdomen appears normal. 09:30 Back: pain, is absent, ROM is normal. 09:30 Neuro: Orientation: to person, place \\T\\ time. Mentation: is normal, Motor: moves all fours, strength is normal, Sensation: is normal. Vital Signs: 08:56 BP 128 / 69 RA Sitting (auto/reg); Pulse 96; Resp 18; Temp 98.9; Pulse Ox 99% ; Weight ap3 61.69 kg; Height 5 ft. 2 in. (157.48 cm); 10:39 BP 121 / 61; Pulse 85; Resp 16; Pulse Ox 96% ; bp 11:08 BP 130 / 70; Pulse 78; Resp 16; Temp 98; Pulse Ox 97% ; bp 08:56 Body Mass Index 24.87 (61.69 kg, 157.48 cm) ap3 MDM: 09:11 Patient medically screened. 09/02 09:13 Order name: COVID-19 SARS RT PCR (Document "Date of Onset" if Symptomatic) 09/02 09:13 Order name: Influenza Screen (a \\T\\ B) 09/02 09:13 Order name: Strep 09/02 09:16 Order name: CBC with Diff; Complete Time: 09:51 09/02 09:51 Interpretation: Normal except: MPV 7.2; WILLIAM% 79.3; LYM% 11.3. 09/02 09:16 Order name: BMP; Complete Time: 10:27 09/02 10:27 Interpretation: Normal except: GLUC 115. 09/02 09:16 Order name: IV; Complete Time: 09:35 cp 09/02 09:16 Order name: CRP; Complete Time: 10:27 cp 09/02 10:27 Interpretation: Abnormal: C-REACTIVE PROT 3.12. cp 09/02 09:16 Order name: Ferritin; Complete Time: 10: cp 09/02 10:35 Order name: Throat Culture EDMS Administered Medications: 10:07 Drug: Bebtelovimab 175 mg Route: IV; Rate: calculated rate; Site: right forearm; bp 11:10 Follow up: IV Status: Completed infusion bp Disposition Summary: 09/02/21 10:56 Discharge Ordered Location: Home cp Problem: new cp Symptoms: have improved cp Condition: Stable cp Diagnosis - SARS-associated coronavirus as the cause of diseases classified elsewhere cp Followup: cp - With: Private Physician - When: 1 - 2 days - Reason: Worsening of condition Discharge Instructions: - Discharge Summary Sheet cp - Aspirin and Your Heart cp - Things to Know about the COVID-19 Pandemic - [facility] cp - 10 Things You Can Do to Manage Your COVID-19 Symptoms at Home - [facility] cp - COVID-19: Quarantine vs. Isolation - [facility] cp - Prevent the Spread of COVID-19 if You Are Sick - [facility] cp Forms: - Medication Reconciliation Form cp - Thank You Letter cp - Antibiotic Education cp - Prescription Opioid Use cp Prescriptions: - Bromfed DM 2-30-10 mg/5 mL Oral syrup - take 10 milliliter by ORAL route every 6 hours; 180 milliliter; Refills: 0, cp Product Selection Permitted - Ibuprofen 600 mg Oral Tablet - take 1 tablet by ORAL route every 8 hours As needed take with food; 30 tablet; cp Refills: 0, Product Selection Permitted Signatures: Dispatcher [employer] EDMS Quinn De La Fuente PA PA cp Peltier, Brian RN RN bp Peace Obrien RN RN ap3
--- NOTE | 2021-09-02 10:57 | ER ---
Nurse's Notes [facility] Name: Goldie Eduardo Age: 76 yrs Sex: Female : 1945 Arrival Date: 09/02/2021 Time: 08:51 Bed 17 Private MD: Diagnosis: SARS-associated coronavirus as the cause of diseases classified elsewhere Presentation: 09/02 08:56 Chief complaint: Patient states: she tested positive this morning after her symptoms ap3 began 08/29/2021. Patient states she brought her son in to the ED to be tested 08/30/21 who was positive. Patient presents to the ED requesting prescription for COVID. Coronavirus screen: Client reports previous positive COVID test result. Ebola Screen: No symptoms or risks identified at this time. Initial Sepsis Screen:. Initial Sepsis Screen: Does the patient meet any 2 criteria? No. Patient's initial sepsis screen is negative. Does the patient have a suspected source of infection? No. Patient's initial sepsis screen is negative. Risk Assessment: Do you want to hurt yourself or someone else? Patient reports no desire to harm self or others. Onset of symptoms was August 29, 2021. 08:56 Method Of Arrival: Ambulatory ap3 08:56 Acuity: JEANNIE 4 ap3 Triage Assessment: 09:01 General: Appears in no apparent distress. Behavior is calm, cooperative, appropriate ap3 for age. Pain: Denies pain. EENT: Reports pain when swallowing. Neuro: Level of Consciousness is awake, alert, obeys commands, Oriented to person, place, time, situation. Cardiovascular: Patient's skin is warm and dry. Respiratory: Airway is patent Respiratory effort is even, unlabored. Respiratory: Reports cough that is. Historical: - Allergies: 09:00 Amoxicillin; ap3 09:00 Codeine; ap3 09:00 Fluconazole; ap3 09:00 IV contrast; ap3 09:00 Lexican; ap3 - Home Meds: 09:00 Lisinopril Oral twice a day [Active]; ap3 - PMHx: 09:00 Hypertensive disorder; Hypercholesterolemia; ap3 - Immunization history:: Client reports receiving the 2nd dose of the Covid vaccine. - Social history:: Smoking status: Patient denies any tobacco usage or history of. Screenin:00 Abuse screen: Denies threats or abuse. Nutritional screening: No deficits noted. ap3 Tuberculosis screening: No symptoms or risk factors identified. 09:00 Fall Risk None identified. bp Assessment: 09:00 General: SEE TRIAGE NOTE. bp 10:39 Reassessment: No changes from previously documented assessment. Patient and/or family bp updated on plan of care and expected duration. Pain level reassessed. 11:08 Reassessment: PT D/C HOME AMBULATORY, DX WITH SARS. bp Vital Signs: 08:56 BP 128 / 69 RA Sitting (auto/reg); Pulse 96; Resp 18; Temp 98.9; Pulse Ox 99% ; Weight ap3 61.69 kg; Height 5 ft. 2 in. (157.48 cm); 10:39 BP 121 / 61; Pulse 85; Resp 16; Pulse Ox 96% ; bp 11:08 BP 130 / 70; Pulse 78; Resp 16; Temp 98; Pulse Ox 97% ; bp 08:56 Body Mass Index 24.87 (61.69 kg, 157.48 cm) ap3 ED Course: 08:51 Patient arrived in ED. as 08:56 Quinn De La Fuente PA is PHCP. cp 08:56 Ling Batres is Attending Physician. cp 09:00 Triage completed. ap3 09:00 Patient has correct armband on for positive identification. Bed in low position. Call bp light in reach. Side rails up X2. 09:01 Arm band placed on right wrist. ap3 09:24 Mak Puckett, RN is Primary Nurse. bp 09:32 Strep Sent. mb7 09:32 Influenza Screen (a \\T\\ B) Sent. mb7 09:32 COVID-19 SARS RT PCR (Document "Date of Onset" if Symptomatic) Sent. mb7 09:35 Inserted saline lock: 22 gauge in right forearm, using aseptic technique. Blood bp collected. 11:09 No provider procedures requiring assistance completed. IV discontinued, intact, bp bleeding controlled, No redness/swelling at site. Pressure dressing applied. Administered Medications: 10:07 Drug: Bebtelovimab 175 mg Route: IV; Rate: calculated rate; Site: right forearm; bp 11:10 Follow up: IV Status: Completed infusion bp Medication: 11:09 VIS not applicable for this client. bp Outcome: 10:56 Discharge ordered by . cp 11:09 Discharged to home ambulatory. bp 11:09 Condition: stable 11:09 Discharge instructions given to patient, Instructed on discharge instructions, follow up and referral plans. medication usage, Demonstrated understanding of instructions, follow-up care, medications, Prescriptions given X 2. 11:10 Patient left the ED. bp Signatures: Milka Aragon Corey, PA PA cp Peltier, Brian, RN RN bp Peace Obrien RN RN ap3 Cesilia Samaniego 7
[2021-09-02 11:20] VITALS: BP 130/70; TEMP 98; O2SAT 97
== END 2021-09-02 11:10 | disposition home or self-care (01) ==
LOC: ER 08:50
DX: U07.1 COVID-19 (principal); I10 Essential (primary) hypertension; Z88.1 Allergy status to other antibiotic agents; Z88.5 Allergy status to narcotic agent; Z88.8 Allergy status to other drugs, medicaments and biological substances; Z91.041 Radiographic dye allergy status
CPT/HCPCS: 96365; 87070; 85025; 80048; 36415; 87081; 82728; 86140; 87804 ×2; 99284; U0003

== ENCOUNTER 2022-09-19 12:04 | Emergency (ER) | payer OTHER ==
--- OUTSIDE RECORDS SUMMARY | 2022-09-19 12:16 | XMS REPORT | Clinical Summary ---
:1945 Author Organization [facility] MD Ledez[facility] Center Address [address] [place] [address] Care Team Providers Name Role Phone Johanna Espinosa MD Unavailable Johanna Espinosa MD Unavailable Jose Espana MD Primary Care Provider Taya Perez DO Unavailable Allergies Active Allergy Reactions Severity Noted Date Comments Amoxicillin Rash Low 10/19/2015 Codeine Other (See Comments) 10/19/2015 TYLENOL #3- pt reports makes h er feel "funny" Propoxyphene GI Intolerance 10/19/2015 N-Acetaminophen Fluconazole Rash Low 10/19/2015 Regadenoson Other (See Comments) 10/19/2015 Made ja ws, neck, back hurt, emilee ing, numbness Medications Medication Sig Dispensed Refills Start Date End Date Status fish oil-omega-3 fatty Take 2 g by mouth 0 Active acids 300-1,000 mg twice daily. capsule Reported on 01/25/2016 magnesium 250 mg tab Take 500 mg by 0 Active mouth daily. ascorbic acid, vitamin Take 1,000 mg by 0 Active C, (vitamin C) 1000 mg mouth daily. tablet lisinopril Take 2.5 mg by 0 Acti ve (PRINIVIL,ZESTRIL) 2.5 mouth twice mg tablet daily. gemfibrozil (LOPID) 600 Take 600 mg by 0 Active mg tablet mouth daily. TURMERIC ORAL Take 500 mg by 0 A ctive mouth daily. cyanocobalamin (vitamin Take 1,000 mcg by 0 Active B-12) 1000 mcg tablet mouth daily. calcium Take 2 tablets by 0 Ac tive carbonate-vitamin D3 mouth daily. 500 mg - 200 units (1,250 mg calcium carbonate) tablet zinc gluconate 50 mg Take 50 mg by 0 Active tablet mouth daily. vit A/vit C/vit Take by mouth 0 Active E/zinc/copper (ICAPS twice daily. 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 Active Problems Patient Care Coordination Note Formatting of this note might be differe nt from the original. Patient has 2 handicapped children. 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; Estrogen recept or positive status (ER+) 11/16/2021 Travel after 09/19/2021 Surgical History Surgery Date Site/Laterality Comments TOTAL ABDOMINAL HYSTERECTOMY W/ BILATERAL SALPINGOOPHORECTOMY BREAST BIOPSY COLONOSCOPY ID MASTECTOMY PARTIAL 11/10/2015 Breast/Left Procedure: NEEDLE LOCALIZED, SEGME NTAL MASTECTOMY - NEE DLE LOC; Surgeon: Maria Pena MD; Location: [facility] OR; Service: BREAST ID BX/EXC LYMPH NODE OPEN DEEP 11/10/2015 Axilla/Left P rocedure: SENTINEL NODE AXILLARY NODE BIOPSY ; Surgeon : Maria Pena MD; Loc ation: [facility] OR; Service : BREAST ID INTRAOP SENTINEL LYMPH NODE 11/10/2015 Breast/Left P rocedure: INTRAOPERATIVE ID W/DYE INJECTION LYMPHATIC MAP PING; Surgeon: Maria Pena MD; Location: [facility]; Service: BREAST ID BREAST RECONSTRUC W OTHR 11/10/2015 Breast/Left Proc edure: RECONSTRUCTION TECHNIQ OF BREAST WITH O THER TECHNIQUE; Surge on: Isaak Grullon MD; Lo cation: [facility] OR; Service : PLS - PLASTIC SURGERY ID MASTECTOMY SIMPLE COMPLETE 12/04/2015 Breast/Left Pr ocedure: TOTAL MASTECTOMY; Surg lilian: Maria Pena MD; Location: [facility]; Service: BREAST Medical History Medical History Date Comments Arthritis Seasonal allergic rhinitis Aortic aneurysm without rupture Endometriosis Hypertension Hypercholesterolemia Diverticulosis of sigmoid colon Breast cancer Hyperlipidemia Irregular heart beat 2015 Cyst of breast -2015 Menopause 1987 Multinodular goiter 2018 H/O: miscarriage Family History Medical History Relation Name Comments Prostate cancer Brother dang Graves' disease Sister 1 Hypothyroidism Sister 2 Thyroid cancer Son Raul Eduardo PTC Relation Name Status Comments Brother dang Sister 1 Sister 2 Son Raul Eduardo Social History Tobacco Use Types Packs/Day Years Used Date Smoking Tobacco: Never Smokeless Tobacco: Never Alcohol Use Standard Drinks/Week Comments No 0 [...] for 3 mo Last Filed Vital Signs Not on file Plan of Treatment Health Maintenance Due Date Last Done Comments COVID-19 Vaccination (3 - Pfizer risk 05/27/2020 04/29/2020 , 04/08/2020 series) Procedures Procedure Name Priority Date/Time Associated Diagnosis Comme nts MAMMO DIGITAL Routine 11/16/2021 10:59 Intraductal Results fo r this DIAGNOSTIC RIGHT W AM CDT carcinoma in situ of p rocedure are in BHARGAV left breast the results Estrogen receptor section. positive status (ER+) after 09/19/2021 Results Mammography Digital Diagnostic Right with Bhargav (11/16/2021 10:59 AM CDT) Anatomical Region Laterality Modality Breast Right Mammography Specimen (Source) Anatomical Collection Method Collection Time Re ceived Time Location / / Volume Laterality 11/16/2021 3:34 PM CDT Impressions 11/16/2021 3:34 PM CDT There is no mammographic evidence of malignancy. Follow-up mammogram in 1 year is recomme nded. BI-RADS Category 2: Benign Finding(s) Narrative 11/16/2021 3:34 PM CDT CLINICAL INDICATION: Patient is a 76 year old female and is s een for additional evaluation requested from prior study MAMMO DIGITAL DIAGNOSTIC RIGHT W BHARGAV Digital Mammogram evaluated with Compute r Aided Detection (CAD). COMPARISON: The present examination has been compare d to prior imaging studies performed at [facility] on 10/22/2016, 10/29/2017, 11/12/2018, 11/17/2019 and 11/16/2020. FINDINGS: The breast is heterogeneously dense, whi ch may obscure small masses. There are vascular calcifications in the right breast. No dominant mass, distortion, or suspicious calcifications are identified. Tomosynthesis performed in CC and MLO pr ojections. Procedure Note Conchita Piper MD - 11/16/2021Form atting of this note might be different from the original. CLINICAL INDICATION: Patient is a 76 year old female and is s een for additional evaluation requested from prior study MAMMO DIGITAL DIAGNOSTIC RIGHT W BHARGAV Digital Mammogram evaluated with Compute r Aided Detection (CAD). COMPARISON: The present examination has been compare d to prior imaging studies performed at [facility] on 10/22/2016, 10/29/2017, 11/12/2018, 11/17/2019 and 11/16/2020. FINDINGS: The breast is heterogeneously dense, whi ch may obscure small masses. There are vascular calcifications in the right breast. No dominant mass, distortion, or suspicious calcifications are identified. Tomosynthesis performed in CC and MLO pr ojections. IMPRESSION: There is no mammographic evidence of mal ignancy. Follow-up mammogram in 1 year is recomme nded. BI-RADS Category 2: Benign Finding(s) Hansa MCCALLUM IMG MAMMOGRAPHY ORDERABLES after 09/19/2021 Insurance Payer Benefit Plan / Subscriber ID Effective Dates Phone Addre ss Type Group AETNA MEDICARE AETNA MEDICARE [id number] 2021-Presen [address] [place] [address] Advance Directives Code Status Date Activated Date Inactivated Comments Full Code 12/04/2015 2:34 PM 12/05/2015 3:50 PM Code Status Date Activated Date Inactivated Comments Full Code 11/10/2015 1:30 PM 11/10/2015 7:40 PM Care Teams Director Public Relationship Specialty Start Date End Date Johanna Espinosa, PCP - External Obstetrics/Gynecology 10/11/15 MD Referring Johanna Espinosa, PCP - External Follow Obstetrics/Gynecology MD Alvarado A Jose Espana MD PCP - General Endocrinology 10/07/18 [address] [place] [address] Taya Perez, DO Family Practice 11/19/[address] [place] [address] [facility] [place] [address]
--- OUTSIDE RECORDS SUMMARY | 2022-09-19 12:17 | XMS REPORT | Continuity of Care Document ---
:1945 Author Organization [facility] t Address [address] [place] [address] Care Team Providers Name Role Phone Jose Espana MD Primary Care Physician Rowena Domingo Attending Clinician Unavailable Taya Perez Attending Clinician Unavailable Hansa Espinosa Attending Clinician Leonela Rondon MD Attending Clinician Jose Espana MD Attending Clinician Cindy Christianson MD Attending Clinician Rowena White Attending Clinician ROWENA RIOS Attending Clinician Unavailable Laurita Hinojosa RN Attending Clinician Unavailable Maria Pena MD Attending Clinician Steffanie Aparicio Attending Clinician Taya Perez Attending Clinician LEONELA RONDON Attending Clinician Unavailable Doctor Unassigned, [place] Attending Clinician Unavailable Payers Payer Name Policy Type Policy Number Effective Date Expiration Date S benji TNA MEDICARE 53 [id number] 2021 Common S pirit 00:00:00 - [facility] [place] 53 [id number] 2017 Common Spi rit PPO 00:00:00 [facility] AETNA MEDICARE [id number] 2017 ADV 00:00:00 Problems Condition Condition Condition Status Onset Resolution Last Treating Co mments Source Name Details Category Date Date Treatment Clinician Date Inflammati Inflammati Disease Active U nivers on of on of 07-21 ity of joint of joint of 00:00: [place] both hands both hands 00 MD Tomy goyal [facility] Erythema Erythema Disease Active Unive rs of vagina of vagina 07-21 ity of 00:00: [place] 00 MD Tomy goyal [facility] Osteopenia Osteopenia Disease Active U nivers 07-21 ity of 00:00: [place] 00 MD Tomy goyal [facility] Carcinoma Carcinoma Disease Active Uni vers in situ of in situ of 21 it y of left left 00:00: [place] breast breast 00 MD Tomy goyal [facility] Carcinoma Carcinoma Disease Active Uni vers in situ of in situ of -21 it y of left left 00:00: [place] breast breast 00 MD Tomy goyal [facility] Unspecifie Unspecifie Disease Active U nivers d lump in d lump in 10-18 ity of unspecif[place] breast 00 MD Tomy goyal [facility] Nipple Nipple Disease Active Univers discharge discharge 10-18 ity of 00:00: [place] 00 MD Tomy goyal [facility] Acute Acute Problem Common sciatica sciatica [facility] [id number] SI joint Problem Comm on arthritis [facility] [id number] Sciatica Problem Commo n of right Spirit side [facility] [id number] Primary Problem Comm on osteoarthr Spirit itis of - [facility] right hip [facility] [id number] Pain in Problem Common left Spirit shoulder [facility] [id number] DDD Problem Common (degenerat Spirit victor m disc - CHI disease), [facility] Heart Heart Problem Common murmur murmur [facility] Depression Depression Problem C ommon Spirit - CHI [facility] Fatigue Fatigue Problem Common Spirit - [facility] [id number] Microhemat Problem Co mmon uria Spirit - [facility] [id number] Urinary Problem Common tract Spirit infection - [facility] without [facility] Hyperlipid Hyperlipid Problem C ommon emia emia [facility] Allergic Allergic Problem Commo n rhinitis rhinitis [facility] Thoracic Thoracic Problem Commo n aortic aneurysm Spirit aneurysm without - [facility] without mention of St rupture [facility] Personal History of Problem Com mon history of breast Spirit primary cancer - [facility] malignant [facility] Low back Low back Problem Commo n pain pain [facility] [id number] Cystic Problem Common thyroid [facility] nodule [facility] [id number] Family Problem Commo n [id number] history of Spirit Graves' - CHI disease [facility] [id number] Family Problem Common history of Spirit hypothyroi - [facility] dism [facility] [id number] Osteoarthr Problem Co mmon itis of Spirit multiple - [facility] joints, [facility] Medical osteoarthr Center itis type [id number] Arthritis Problem Co mmon [id number] of knee, Spirit left [facility] Essential Benign Problem Common hypertensi essential Spi rit on HTN [facility] [id number] Pain in Problem Common left knee [facility] Abnormal Abnormal Problem Commo n weight weight Spirit loss loss - [facility] Screening Osteoporos Problem Co mmon for is Spirit osteoporos screening - C HI is [facility] Leukopenia Leukopenia Problem C ommon , Spirit unspecifie - [facility]I d type [facility] [id number] Bladder Problem Commo n prolapse, Spirit female, - [facility]I acquired [facility] [id number] 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 Multinodul Multinodul Disease Active U nivers ar goiter ar goiter [place] [facility] [place] MD H[facility]ron n [facility] Family Family Disease Active Univers history of history of it [place] of malignant [place] neoplasm neoplasm of thyroid of thyroid [facility] Allergies, Adverse Reactions, Alerts Allergy Allergy Status Severity Reaction(s) Onset Inactive Treating Comm ents Source Name Type Date Date Clinician PROPOXYP DRUG Active Rash Univers HENE 11-04 ity of N-ACETAM 00:00: [place] INOPHEN 00 [facility] REGADENO DRUG Active EP Effects Univ ers SON INGREDI 11-04 ity of 00:00: [place] 00 [facility] ACETAMIN DRUG Active Unknown-Cmnt Un johnana OPHEN-CO 11-04 ity of DEINE 00:00: [place] 00 [facility] AMOXICIL DRUG Active Low Rash Univers TYLER INGREDI 10-18 ity of 00:00: [place] 00 [facility] FLUCONAZ DRUG Active Low Rash Univers OLE INGREDI 10-18 ity of 00:00: [place] 00 [facility] Amoxicil Propensi Active Rash Univer s tyler ty to 10-18 ity of adverse 00:00: [place] reaction 00 MD [facility]ole [facility] Codeine Propensi Active Other (See TYLENOL Un johanna ty to Comments) 10-18 #3- pt ity of adverse 00:00: reports [place] reaction 00 makes her s feel Anderslucy "funny" n [facility] Propoxyp Propensi Active GI Univmagali rivera hene ty to Intolerance 10-18 ity o f N-Acetam adverse 00:00: [place] inophen reaction 00 MD [facility] Fluconaz Propensi Active Rash Univmagali rivera ole ty to 10-18 ity of adverse 00:00: [place] reaction 00 MD [facility]ole [facility]al [facility] Regadeno Propensi Active Other (See Made Un johanna son ty to Comments) 10-18 jaws, ity of adverse 00:00: neck, [place] reaction 00 back Tomy Calderon shaking, n numbness [facility] CODEINE DRUG Active Other MD INGREDI 10-18 Anderso 00:00: n 00 PROPOXYP DRUG Active Nausea MD MARTINEZ 10-18 Anderso N-ACETAM 00:00: n INOPHEN 00 REGADENO DRUG Active Other MD SON INGREDI 10-18 Anderso 00:00: n 00 AMOXICIL DRUG Active Low Rash TYLER INGREDI 10-18 Anderso 00:00: n 00 FLUCONAZ DRUG Active Low Rash OLE INGREDI 10-18 Anderso 00:00: n 00 CODEINE DRUG Active Other MD INGREDI 10-18 Anderso 00:00: n 00 PROPOXYP DRUG Active Nausea HENE 10-18 Anderso N-ACETAM 00:00: n INOPHEN 00 REGADENO DRUG Active Other MD FERNANDEZ INGREDI 10-18 Anderso 00:00: n 00 AMOXICIL DRUG Active Low Rash TYLER INGREDI 10-18 Anderso 00:00: n 00 FLUCONAZ DRUG Active Low Rash OLE INGREDI 10-18 Anderso 00:00: n 00 codeine codeine Active Unknown [facility] [id number] Drug Active Unknown Common allergy [facility] amoxicil amoxicil Active Unknown Commo n tyler tyler [facility] fluconaz fluconaz Active Unknown Commo n ole ole [facility] Aspirin Aspirin Active Unknown [facility] [id number] Drug Active Unknown Common allergy [facility] Family History Family Member Diagnosis Comments Start Date Stop Date Source Natural brother Prostate cancer [facility] MD [facility] [facility] [place] Natural sister Graves' disease [facility] MD [place] [facility] [place] Natural sister Hypothyroidism [facility] MD [place] [facility] [place] Natural son Thyroid cancer [facility] Friona [facility] [place] Social History Social Habit Start Date Stop Date Quantity Comments Source History of Common Spirit - Tobacco Use [facility] Alcohol intake 2021-02-20 2021-02-20 Current University of 00:00:00 00:00:00 non-drinker of Sury shah alcohol (finding) [facility] Tobacco use and 2018-10-14 2018-10-14 Smokeless tobacco Un iversity of exposure 00:00:00 00:00:00 non-user Sury Ledezma [facility] Sex Ass[birth year] [facility] y of 00:00:00 00:00:00 [place] MD Ledezma [facility] Smoking Status Start Date Stop Date Source Never Smoker Common Spirit [facility] Medications Ordered Filled Start Stop Current Ordering Indication Dosage Frequency Signature Comments Components Source Medication Medication Date Date Medication? Clinician (SIG) Name Name traMADol traMADol 2021- No 1{table traMADol HCl 50 MG HCl 50 MG 07-16 t} HCl 50 MG 00:00: 00:00 00 :00 traMADol traMADol 2021- No 1{table traMADol HCl 50 MG HCl 50 MG 07-16 t} HCl 50 MG 00:00: 00:00 00 :00 traMADol traMADol 2021- No 1{table traMADol HCl 50 MG HCl 50 MG 07-16 t} HCl 50 MG 00:00: 00:00 00 :00 traMADol traMADol 2021- No 1{table traMADol HCl 50 MG HCl 50 MG 07-16 t} HCl 50 MG 00:00: 00:00 00 :00 methylPREDN methylPREDN 2021- No QD methylPRED ISolone 4 ISolone 4 07-16 NISolone 4 MG MG 00:00: 00:00 MG 00 :00 methylPREDN methylPREDN 2021-2021- No QD methylPRED ISolone 4 ISolone 4 07-16 NISolone 4 MG MG 00:00: 00:00 MG 00 :00 methylPREDN methylPREDN 2021- No QD methylPRED ISolone 4 ISolone 4 07-16 NISolone 4 MG MG 00:00: 00:00 MG 00 :00 traMADol Yes 50mg Take 50 mg Uni vers (ULTRAM) 50 1-12 by mouth ity of mg tablet 20:48: every 6 [place] [address] (six) MD hours as Anderso needed. [facility] traMADol Yes 50mg Take 50 mg Uni vers (ULTRAM) 50 1-12 by mouth ity of mg tablet 20:48: every 6 [place] [address] (six) MD hours as Anderso needed. n [facility] traMADol 0 Yes 50mg Take 50 mg Uni vers (ULTRAM) 50 1-12 by mouth ity of mg tablet 20:48: every 6 [place] 00 (six) MD hours as Anderso needed. [facility] traMADol Yes 50mg Take 50 mg Uni vers (ULTRAM) 50 1-12 by mouth ity of mg tablet 20:48: every 6 [place] 00 (six) MD hours as Anderso needed. [facility] traMADol Yes 50mg Take 50 mg Uni vers (ULTRAM) 50 1-12 by mouth ity of mg tablet 20:48: every 6 [place] 00 (six) MD hours as Anderso needed. [facility] traMADol Yes 50mg Take 50 mg Uni vers (ULTRAM) 50 1-12 by mouth ity of mg tablet 20:48: every 6 [place] 00 (six) MD hours as Anderso needed. [facility] traMADol Yes 50mg Take 50 mg Uni vers (ULTRAM) 50 1-12 by mouth ity of mg tablet 20:48: every 6 [place] 00 (six) MD hours as Anderso needed. [facility] ascorbic Yes 1000mg Take 1,000 U nivers acid, 1-12 mg by ity of vitamin C, 11:29: mouth [place] (vitamin C) 42 daily. 1000 mg Anderso tablet [facility] lisinopril Yes 2.5mg Take 2.5 Un johanna (PRINIVIL,Z 1-12 mg by ity of ESTRIL) 2.5 11:29: mouth [place] mg tablet 42 twice MD daily. Tomy [facility] gemfibrozil Yes 600mg Take 600 U nivers (LOPID) 600 1-12 mg by ity of mg tablet 11:29: mouth [place] 42 daily. MD Tomy goyal [facility] TURMERIC Yes 500mg Take 500 Univ ers ORAL 1-12 mg by ity of 11:29: mouth [place] 42 daily. MD Huitron [facility] cyanocobala Yes 1000ug Take 1,000 Univers min 1-12 mcg by ity of (vitamin 11:29: mouth [place] B-12) 1000 42 daily. mcg tablet Tomy [facility] calcium Yes 2{tbl} Take 2 Univer s carbonate-v 1-12 tablets by it y of itamin D3 11:29: mouth [place] 500 mg - 42 daily. 200 units Anderso (1,250 mg n calcium Cancer carbonate) [place] tablet zinc Yes 50mg Take 50 mg Univers gluconate 1-12 by mouth ity of 50 mg 11:29: daily. [place] tablet [facility] vit A/vit Yes Take by Unive rs C/vit 1-12 mouth ity of E/zinc/alla 11:29: twice [place] er (ICAPS 42 daily. MD MCCOLLUM ORAL) [facility] fish Yes 2g Take 2 g Univers oil-omega-3 1-12 by mouth ity of fatty acids 11:29: twice [place] 300-1,000 42 daily. mg capsule Reported [place] so on n 01/25/2016 [facility] ascorbic Yes 1000mg Take 1,000 U nivers acid, 1-12 mg by ity of vitamin C, 11:29: mouth [place] (vitamin C) 42 daily. 1000 mg Anderslucy tablet [facility] lisinopril Yes 2.5mg Take 2.5 Un johanna (PRINIVIL,Z 1-12 mg by ity of ESTRIL) 2.5 11:29: mouth [place] mg tablet 42 twice MD daily. [facility] gemfibrozil Yes 600mg Take 600 U nivers (LOPID) 600 1-12 mg by ity of mg tablet 11:29: mouth [place] 42 daily. MD Tomy goyal [facility] TURMERIC Yes 500mg Take 500 Univ ers ORAL 1-12 mg by ity of 11:29: mouth [place] 42 daily. MD Tomy goyal [facility] cyanocobala Yes 1000ug Take 1,000 Univers min 1-12 mcg by ity of (vitamin 11:29: mouth [place] B-12) 1000 42 daily. mcg tablet [facility] calcium Yes 2{tbl} Take 2 Univer s carbonate-v 1-12 tablets by it y of itamin D3 11:29: mouth [place] 500 mg - 42 daily. 200 units Andfabiola (1,250 mg n calcium Cancer carbonate) [place] tablet zinc 2022-0 Yes 50mg Take 50 mg Univers gluconate 1-12 by mouth ity of 50 mg 11:29: daily. [place] tablet 42 MD Huitron [facility] vit A/vit Yes Take by [facility] rs C/vit 1-12 mouth ity of E/zinc/alla 11:29: twice [place] er (ICAPS 42 daily. MD MCCOLLUM ORAL) [facility] fish Yes 2g Take 2 g Univers oil-omega-3 1-12 by mouth ity of fatty acids 11:29: twice [place] 300-1,000 42 daily. mg capsule Reported [place] so on n 01/25/2016 Cancer [place] ascorbic Yes 1000mg Take 1,000 U nivers acid, 1-12 mg by ity of vitamin C, 11:29: mouth [place] (vitamin C) 42 daily. 1000 mg Tomy hill [facility] lisinopril Yes 2.5mg Take 2.5 Un johanan (PRINIVIL,Z 1-12 mg by ity of ESTRIL) 2.5 11:29: mouth [place] mg tablet 42 twice [facility]. [facility] 600mg Take 600 U nivers (LOPID) 600 1-12 mg by ity of mg tablet 11:29: mouth [place] 42 daily. MD Tomy goyal [facility] TURMERIC Yes 500mg Take 500 Univ ers ORAL 1-12 mg by ity of 11:29: mouth [place] 42 daily. MD Tomy goyal [facility] cyanocobala Yes 1000ug Take 1,000 Univers min 1-12 mcg by ity of (vitamin 11:29: mouth [place] B-12) 1000 42 daily. mcg tablet [facility] calcium Yes 2{tbl} Take 2 Univer s carbonate-v 1-12 tablets by it y of itamin D3 11:29: mouth [place] 500 mg - 42 daily. 200 units Tomy (1,250 mg n calcium Cancer carbonate) [place] tablet zinc Yes 50mg Take 50 mg Univers gluconate 1-12 by mouth ity of 50 mg 11:29: daily. [place] tablet 42 MD Tomy goyal [facility] vit A/vit Yes Take by Unive rs C/vit 1-12 mouth ity of E/zinc/alla 11:29: twice [place] er (ICAPS 42 daily. MD MCCOLLUM ORAL) [facility] fish Yes 2g Take 2 g Univers oil-omega-3 1-12 by mouth ity of fatty acids 11:29: twice [place] 300-1,000 42 daily. mg capsule Reported [place] so on n 01/25/2016 [facility] [place] ascorbic Yes 1000mg Take 1,000 U nivers acid, 1-12 mg by ity of vitamin C, 11:29: mouth [place] (vitamin C) 42 daily. 1000 mg Tomy tablet [facility] lisinopril Yes 2.5mg Take 2.5 Un johanna (PRINIVIL,Z 1-12 mg by ity of ESTRIL) 2.5 11:29: mouth [place] mg tablet 42 twice MD daily. Tomy [facility] gemfibrozil Yes 600mg Take 600 U nivers (LOPID) 600 1-12 mg by ity of mg tablet 11:29: mouth [place] 42 daily. MD Tomy goyal [facility] TURMERIC Yes 500mg Take 500 Univ ers ORAL 1-12 mg by ity of 11:29: mouth [place] 42 daily. MD Tomy goyal [facility] cyanocobala Yes 1000ug Take 1,000 Univers min 1-12 mcg by ity of (vitamin 11:29: mouth [place] B-12) 1000 42 daily. mcg tablet Tomy [facility] calcium Yes 2{tbl} Take 2 Univer s carbonate-v 1-12 tablets by it y of itamin D3 11:29: mouth [place] 500 mg - 42 daily. 200 units Tomy (1,250 mg n calcium Cancer carbonate) [place] tablet zinc Yes 50mg Take 50 mg Univers gluconate 1-12 by mouth ity of 50 mg 11:29: daily. [place] tablet 42 MD Huitron [facility] vit A/vit Yes Take by Unive rs C/vit 1-12 mouth ity of E/zinc/alla 11:29: twice [place] er (ICAPS 42 daily. MD MCCOLLUM ORAL) [facility] fish Yes 2g Take 2 g Univers oil-omega-3 1-12 by mouth ity of fatty acids 11:29: twice [place] 300-1,000 42 daily. mg capsule Reported [place] so on n 01/25/2016 [facility] ascorbic Yes 1000mg Take 1,000 U nivers acid, 1-12 mg by ity of vitamin C, 11:29: mouth [place] (vitamin C) 42 daily. 1000 mg Andfabiola tablet [facility] lisinopril Yes 2.5mg Take 2.5 Un johanna (PRINIVIL,Z 1-12 mg by ity of ESTRIL) 2.5 11:29: mouth [place] mg tablet 42 twice MD daily. [facility] gemfibrozil Yes 600mg Take 600 U nivers (LOPID) 600 1-12 mg by ity of mg tablet 11:29: mouth [place] 42 daily. [facility] TURMERIC Yes 500mg Take 500 Univ ers ORAL 1-12 mg by ity of 11:29: mouth [place] [address] [facility] cyanocobala Yes 1000ug Take 1,000 Univers min 1-12 mcg by ity of (vitamin 11:29: mouth [place] B-12) 1000 42 daily. mcg tablet [facility] calcium Yes 2{tbl} Take 2 Univer s carbonate-v 1-12 tablets by it y of itamin D3 11:29: mouth [place] 500 mg - 42 daily. 200 units Derrick (1,250 mg n calcium Cancer carbonate) [place] tablet zinc Yes 50mg Take 50 mg Univers gluconate 1-12 by mouth ity of 50 mg 11:29: daily. [place] tablet 42 [facility] vit A/vit Yes Take by Unive rs C/vit 1-12 mouth ity of E/zinc/alla 11:29: twice [place] er (ICAPS 42 daily. MD MCCOLLUM ORAL) [facility] fish Yes 2g Take 2 g Univers oil-omega-3 1-12 by mouth ity of fatty acids 11:29: twice [place] 300-1,000 42 daily. mg capsule Reported [place] so on n 01/25/2016 [facility] ascorbic Yes 1000mg Take 1,000 U nivers acid, 1-12 mg by ity of vitamin C, 11:29: mouth [place] (vitamin C) 42 daily. 1000 mg Anderso tablet [facility] lisinopril Yes 2.5mg Take 2.5 Un johanna (PRINIVIL,Z 1-12 mg by ity of ESTRIL) 2.5 11:29: mouth [place] mg tablet 42 twice MD [facility]. [facility] gemfibrozil Yes 600mg Take 600 U nivers (LOPID) 600 1-12 mg by ity of mg tablet 11:29: mouth [place] 42 daily. MD Huitron [facility] TURMERIC Yes 500mg Take 500 Univ ers ORAL 1-12 mg by ity of 11:29: mouth [place] 42 daily. MD Tomy goyal [facility] cyanocobala Yes 1000ug Take 1,000 Univers min 1-12 mcg by ity of (vitamin 11:29: mouth [place] B-12) 1000 42 daily. mcg tablet [facility] calcium Yes 2{tbl} Take 2 Univer s carbonate-v 1-12 tablets by it y of itamin D3 11:29: mouth [place] 500 mg - 42 daily. 200 units Tomy (1,250 mg n calcium Cancer carbonate) [place] tablet zinc Yes 50mg Take 50 mg Univers gluconate 1-12 by mouth ity of 50 mg 11:29: daily. [place] tablet 42 MD Huitron [facility] vit A/vit Yes Take by Unive rs C/vit 1-12 mouth ity of E/zinc/alla 11:29: twice [place] er (ICAPS 42 daily. MD HESTERDS ORAL) [facility] fish Yes 2g Take 2 g Univers oil-omega-3 1-12 by mouth ity of fatty acids 11:29: twice [place] 300-1,000 42 daily. mg capsule Reported [place] so on n 01/25/2016 [facility] fish Yes 2g Take 2 g Univers oil-omega-3 1-12 by mouth ity of fatty acids 11:29: twice [place] 300-1,000 42 daily. mg capsule Reported [place] so on n 01/25/2016 [facility] [place] ascorbic Yes 1000mg Take 1,000 U nivers acid, 1-12 mg by ity of vitamin C, 11:29: mouth [place] (vitamin C) 42 daily. 1000 mg Tomy hill [facility] lisinopril Yes 2.5mg Take 2.5 Un johanna (PRINIVIL,Z 1-12 mg by ity of ESTRIL) 2.5 11:29: mouth [place] mg tablet 42 twice daily. [facility] gemfibrozil Yes 600mg Take 600 U nivers (LOPID) 600 1-12 mg by ity of mg tablet 11:29: mouth [place] 42 daily. MD Tomy goyal [facility] TURMERIC Yes 500mg Take 500 Univ ers ORAL 1-12 mg by ity of 11:29: mouth [place] 42 daily. MD Tomy goyal [facility] cyanocobala Yes 1000ug Take 1,000 Univers min 1-12 mcg by ity of (vitamin 11:29: mouth [place] B-12) 1000 42 daily. mcg tablet [facility] calcium Yes 2{tbl} Take 2 Univer s carbonate-v 1-12 tablets by it y of itamin D3 11:29: mouth [place] 500 mg - 42 daily. 200 units Andmartinezo (1,250 mg n calcium Cancer carbonate) [place] tablet zinc Yes 50mg Take 50 mg Univers gluconate 1-12 by mouth ity of 50 mg 11:29: daily. [place] tablet 42 MD Huitron [facility] vit A/vit Yes Take by Unive rs C/vit 1-12 mouth ity of E/zinc/alla 11:29: twice [place] er (ICAPS 42 daily. MD MCCOLLUM ORAL) [facility] magnesium Yes 500mg Take 500 Uni vers 250 mg tab 1-11 mg by ity of 12:34: mouth [place] 10 daily. MD Huitron [facility] magnesium Yes 500mg Take 500 Uni vers 250 mg tab 1-11 mg by ity of 12:34: mouth [place] 10 daily. [facility] magnesium Yes 500mg Take 500 Uni vers 250 mg tab 1-11 mg by ity of 12:34: mouth [place] 10 daily. [facility] magnesium Yes 500mg Take 500 Uni vers 250 mg tab 1-11 mg by ity of 12:34: mouth [place] 10 daily. [facility] magnesium Yes 500mg Take 500 Uni vers 250 mg tab 1-11 mg by ity of 12:34: mouth [place] 10 daily. [facility] magnesium Yes 500mg Take 500 Uni vers 250 mg tab 1-11 mg by ity of 12:34: mouth [place] 10 daily. [facility] magnesium Yes 500mg Take 500 Uni vers 250 mg tab 1-11 mg by ity of 12:34: mouth [place] [address] [facility] multivitami 2021- No 1{tbl} Take 1 U nivers n 02-20 tablet by ity of (multivitam 12:34: 00:00 [place] in[place] tab 03 :00 daily. MD [place] [facility] multivitami 2021- No 1{tbl} Take 1 U nivers n 02-20 tablet by ity of (multivitam 12:34: 00:00 [place] in[place] tab 03 :00 daily. [place] [facility] multivitami 2021- No 1{tbl} Take 1 U nivers n 02-20 tablet by ity of (multivitam 12:34: 00:00 [place] in[place] tab 03 :00 daily. MD [place] [facility] multivitami 2021- No 1{tbl} Take 1 U nivers n 02-20 tablet by ity of (multivitam 12:34: 00:[place] tab 03 :00 daily. MD [place] [facility] letrozole 2021- No 2.5mg Take 2.5 Un johanna (FEMARA) 02-20 mg by ity of 2.5 mg 12:33: 00:00 mouth [place] tablet 55 :00 daily. MD [facility] letrozole 2021- No 2.5mg Take 2.5 Un johanna (FEMARA) 02-20 mg by ity of 2.5 mg 12:33: 00:00 mouth [place] tablet 55 :00 daily. MD [facility] letrozole 2021- No 2.5mg Take 2.5 Un johanna (FEMARA) 02-20 mg by ity of 2.5 mg 12:33: 00:00 mouth [place] tablet 55 :00 daily. MD [facility] letrozole 2021- No 2.5mg Take 2.5 Un johanna (FEMARA) 02-20 mg by ity of 2.5 mg 12:33: 00:00 mouth [place] tablet 55 :00 daily. MD [facility] diphenhydrA 2021- No 25mg Take 25 mg [facility] MINE 02-20 by mouth ity of (BENADRYL) 12:33: 00:00 every 8 Jim as 25 mg 41 :00 (eight) MD capsule hours as Anderso needed for n itching. [facility] Pt takes Center when taking Tramadol diphenhydrA 2021- No 25mg Take 25 mg Univers MINE 02-20 by mouth ity of (BENADRYL) 12:33: 00:00 every 8 Jim as 25 mg 41 :00 (eight) MD capsule hours as Anderso needed for n itching. Cancer Pt takes Center when taking Tramadol diphenhydrA 2021- No 25mg Take 25 mg Univers MINE 02-20 by mouth ity of (BENADRYL) 12:33: 00:00 every 8 Jim as 25 mg 41 :00 (eight) MD capsule hours as Anderso needed for n itching. Cancer Pt takes Center when taking Tramadol diphenhydrA 2021- No 25mg Take 25 mg Univers MINE 02-20 by mouth ity of (BENADRYL) 12:33: 00:00 every 8 Jim as 25 mg 41 :00 (eight) MD capsule hours as Anderso needed for n itching. Cancer Pt takes Center when taking Tramadol calcium 2021- No 600mg Take 600 Univ ers carbonate 1-11 01-11 mg by ity of (OS-LILIYA) 12:33: 00:00 mouth 2 [place] 600 mg 23 :00 (two) MD (1,500 mg) times a Derrick o tablet day with n meals. [facility] calcium 2021- No 600mg Take 600 Univ ers carbonate 1-11 01-11 mg by ity of (OS-LILIYA) 12:33: 00:00 mouth 2 [place] 600 mg 23 :00 (two) MD (1,500 mg) times a Derrick o tablet day with n meals. [facility] calcium 2021- No 600mg Take 600 Univ ers carbonate 1-11 01-11 mg by ity of (OS-LILIYA) 12:33: 00:00 mouth 2 [place] 600 mg 23 :00 (two) MD (1,500 mg) times a Derrick o tablet day with n meals. [facility] calcium 2021- No 600mg Take 600 Univ ers carbonate 1-11 01-11 mg by ity of (OS-LILIYA) 12:33: 00:00 mouth 2 [place] 600 mg 23 :00 (two) MD (1,500 mg) times a Derrick o tablet day with n meals. [facility] letrozole Yes Estrogen 2.5mg Take 1 U nivers (Femara) 6-17 receptor tablet ity o f 2.5 mg 00:00: positive (2.5 mg) Jim as tablet 00 status by mouth MD (ER+) daily. [facility] letrozole Yes Estrogen 2.5mg Take 1 U nivers (Femara) 6-17 receptor tablet ity o f 2.5 mg 00:00: positive (2.5 mg) Jim as tablet 00 status by mouth MD (ER+) daily. [facility] letrozole Yes Estrogen 2.5mg Take 1 U nivers (Femara) 6-17 receptor tablet ity o f 2.5 mg 00:00: positive (2.5 mg) Jim as tablet 00 status by mouth MD (ER+) daily. [facility] letrozole Yes Estrogen 2.5mg Take 1 U nivers (Femara) 6-17 receptor tablet ity o f 2.5 mg 00:00: positive (2.5 mg) Jim as tablet 00 status by mouth MD (ER+) daily. [facility] letrozole Yes Estrogen 2.5mg Take 1 U nivers (Femara) 6-17 receptor tablet ity o f 2.5 mg 00:00: positive (2.5 mg) Jim as tablet 00 status by mouth MD (ER+) daily. [facility] letrozole Yes Estrogen 2.5mg Take 1 U nivers (Femara) 6-17 receptor tablet ity o f 2.5 mg 00:00: positive (2.5 mg) Jim as tablet 00 status by mouth MD (ER+) daily. [facility] letrozole Yes Estrogen 2.5mg Take 1 U nivers (Femara) 6-17 receptor tablet ity o f 2.5 mg 00:00: positive (2.5 mg) Jim as tablet 00 status by mouth MD (ER+) daily. [facility] Bupivicaine Bupivicaine 2019- No 2.5mg [facility] [place] 2-03 [facility] No 40mg [facility] (Triamcinol (Triamcinol 2-03 S pirit one) one) 00:00: - [facility] Bupivicaine Bupivicaine 2019- No 2.5mg [facility] [place] 2[place]03 [facility] 00:[facility]02 No 40mg [facility] (Triamcinol (Triamcinol 2-03 S pirit one) one) 00:00: - [facility]I 00 [facility] Bupivicaine Bupivicaine 2019- No 2.5mg [facility] [place] 2-03 Spirit 00:00: - [facility] Kenalog 2019-02 No 40mg [facility] (Triamcinol (Triamcinol 2-03 S pirit one) one) 00:00: - [facility]I [facility] Bupivicaine Bupivicaine 2019- No 2.5mg [facility] [place] 2-03 Spirit 00:00: - [facility]I 00 [facility] Kenalog Kenalog 2020- No 40mg [facility] (Triamcinol (Triamcinol 2-03 S pirit one) one) 00:00: - [facility]I 00 [facility] Bupivicaine Bupivicaine 2019- No 2.5mg [facility] [place] 2[place]03 Spirit 00:00: - [facility]I 00 [facility] Kenalog Kenalog 2019- No 40mg Common (Triamcinol (Triamcinol 2-03 S pirit one) one) 00:00: - [facility]I 00 [facility] Bupivicaine Bupivicaine 2019- No 2.5mg [facility] [place] 2-03 Spirit 00:00: - [facility]I 00 [facility] Kenalog Kenalog 2019- No 40mg Common (Triamcinol (Triamcinol 2-03 S pirit one) one) 00:00: - [facility]I 00 [facility] Bupivicaine Bupivicaine 2019-1 No 2.5mg [facility] [place] 2-03 Spirit 00:00: - [facility]I 00 [facility] Kenalog Kenalog 2019- No 40mg [facility] (Triamcinol (Triamcinol 2-03 S pirit one) one) 00:00: - [facility]I 00 [facility] Bupivicaine Bupivicaine 2019-1 No 2.5mg [facility] [place] 2[place]03 Spirit 00:00: - [facility]I 00 [facility] Kenalog Kenalog 2019- No 40mg Common (Triamcinol (Triamcinol 2-03 S pirit one) one) 00:00: - CHI 00 [facility] Celestone Celestone 2019- No 6mg Com mon Soluspan Soluspan 0-19 Spirit (Betamethas (Betamethas 00:00: - CHI one) one) 00 [facility] Lidocaine Lidocaine 2019- No 10mg Com mon 0-19 Spirit 00:00: - [facility]I 00 [facility] Lidocaine Lidocaine 2019- No 10mg Com mon 0-19 Spirit 00:00: - [facility]I 00 [facility] Celestone Celestone 2019- No 6mg Com mon Soluspan Soluspan 0-19 Spirit (Betamethas (Betamethas 00:00: - CHI one) one) 00 [facility] Celestone Celestone 2020-1 No 6mg Com mon Soluspan Soluspan 0-19 Spirit (Betamethas (Betamethas 00:00: - CHI one) one) 00 [facility] Lidocaine Lidocaine 2020-1 No 10mg Com mon 0-19 Spirit 00:00: - [facility]I 00 [facility] Lidocaine Lidocaine 2020-1 No 10mg Com mon 0-19 Spirit 00:00: - [facility]I 00 [facility] Celestone Celestone 2020-1 No 6mg Com mon Soluspan Soluspan 0-19 Spirit (Betamethas (Betamethas 00:00: - CHI one) one) 00 [facility] Celestone Celestone 2020-1 No 6mg Com mon Soluspan Soluspan 0-19 Spirit (Betamethas (Betamethas 00:00: - CHI one) one) 00 [facility] Lidocaine Lidocaine 2020-1 No 10mg Com mon 0-19 Spirit 00:00: - [facility]I 00 [facility] Lidocaine Lidocaine 2020-1 No 10mg Com mon 0-19 Spirit 00:00: - [facility]I 00 [facility] Celestone Celestone 2020-1 No 6mg Com mon Soluspan Soluspan 0-19 Spirit (Betamethas (Betamethas 00:00: - CHI one) one) 00 [facility] Celestone Celestone 2020-1 No 6mg Com mon Soluspan Soluspan 0-19 Spirit (Betamethas (Betamethas 00:00: - CHI one) one) 00 [facility] Lidocaine Lidocaine 2020-1 No 10mg Com mon 0-19 Spirit 00:00: - CHI 00 [facility] Lidocaine Lidocaine 2020-1 No 10mg Com mon 0-19 Spirit 00:00: - CHI 00 [facility] Celestone Celestone 2020-1 No 6mg Com mon Soluspan Soluspan 0-19 Spirit (Betamethas (Betamethas 00:00: - CHI one) one) 00 [facility] Celestone Celestone 2020-1 No 6mg Com mon Soluspan Soluspan 0-19 Spirit (Betamethas (Betamethas 00:00: - CHI one) one) 00 [facility] Lidocaine Lidocaine 2020-1 No 10mg Com mon 0-19 Spirit 00:00: - CHI 00 [facility] Lidocaine Lidocaine 2020-1 No 10mg Com mon 0-19 Spirit 00:00: - CHI 00 [facility] Celestone Celestone 2020-1 No 6mg Com mon Soluspan Soluspan 0-19 Spirit (Betamethas (Betamethas 00:00: - CHI one) one) 00 [facility] Celestone Celestone 2020-1 No 6mg Com mon Soluspan Soluspan 0-19 Spirit (Betamethas (Betamethas 00:00: - CHI one) one) 00 [facility] Lidocaine Lidocaine 2020-1 No 10mg Com mon 0-19 Spirit 00:00: - CHI 00 [facility] Lidocaine Lidocaine 2020-1 No 10mg Com mon 0-19 Spirit 00:00: - CHI 00 [facility] Celestone Celestone 2020-1 No 6mg Com mon Soluspan Soluspan 0-19 Spirit (Betamethas (Betamethas 00:00: - CHI one) one) 00 [facility] Celestone Celestone 2020-1 No 6mg Com mon Soluspan Soluspan 0-19 Spirit (Betamethas (Betamethas 00:00: - CHI one) one) 00 [facility] Lidocaine Lidocaine 2020-1 No 10mg Com mon 0-19 Spirit 00:00: - CHI 00 [facility] Lidocaine Lidocaine 2020-1 No 10mg Com mon 0-19 Spirit 00:00: - CHI 00 [facility] Celestone Celestone 2020-1 No 6mg Com mon Soluspan Soluspan 0-19 Spirit (Betamethas (Betamethas 00:00: - CHI one) one) 00 [facility] Celestone Celestone 2020-1 No 6mg Com mon Soluspan Soluspan 0-19 Spirit (Betamethas (Betamethas 00:00: - CHI one) one) 00 [facility] Lidocaine Lidocaine 2020-1 No 10mg Com mon 0-19 Spirit 00:00: - CHI 00 [facility] Lidocaine Lidocaine 2020-1 No 10mg Com mon 0-19 Spirit 00:00: - CHI 00 [facility] Celestone Celestone 2019- No 6mg Com mon Soluspan Soluspan 0-19 Spirit (Betamethas (Betamethas 00:00: - CHI one) one) 00 [facility] traMADol 2020- No 50mg Take 50 mg Un johanna (ULTRAM) 50 5-20 10-14 by mouth ity of mg tablet 00:00: 00:00 as needed. [place] 00 :00 Pt takes MD annette garcia for n back pain. [facility] Tramadol Tramadol Yes Nathan 1 tablet [facility] HCl HCl 07-16 [place] [facility] 00:00: - [facility] Gentamicin Gentamicin 2017-0 No 80mg C ommon 80mg 80mg 07-15 Spirit 00:00: - CHI [facility] Gentamicin Gentamicin 2017-0 No 80mg C ommon 80mg 80mg 07-15 Spirit 00:00: - CHI [facility] Gentamicin Gentamicin 2017-0 No 80mg C ommon 80mg 80mg 07-15 Spirit 00:00: - [facility] Gentamicin Gentamicin 2017-0 No 80mg C ommon 80mg 80mg 07-15 Spirit 00:00: - [facility]I [facility] Gentamicin Gentamicin 2017-0 No 80mg C ommon 80mg 80mg 07-15 Spirit 00:00: - [facility]I [facility] Gentamicin Gentamicin 2017-0 No 80mg C ommon 80mg 80mg 07-15 Spirit 00:00: - CHI [facility] Gentamicin Gentamicin 2017-0 No 80mg C ommon 80mg 80mg 07-15 Spirit 00:00: - CHI [facility] Gentamicin Gentamicin 2017-0 No 80mg C ommon 80mg 80mg 07-15 Spirit 00:00: - CHI [facility] Lisinopril Lisinopril Yes Nathan 1 tablet [facility] [place] [facility] - [facility] Letrozole Letrozole Yes Nathan 1 tablet [facility] [place] [facility] Gemfibrozil Gemfibrozil Yes Nathan TAKE 1 [facility] [place] TABLET BY Spirit MOUTH - CHI EVERY DAY [facility] Gemfibrozil Gemfibrozil Yes Nathan 1 tablet [facility] [place] [facility] - [facility] Lisinopril Lisinopril Yes Nathan TAKE 1 Common [place] TABLET BY [facility] MOUTH - CHI TWICE A [facility] Vitamin B Vitamin B Yes Nathan not Co mmon Complex Complex [place] defined [facility] Turmeric Turmeric Yes Nathan not Comm on [place] defined [facility] Vitamin D Vitamin D Yes Nathan not Co mmon [place] defined [facility] Vitamin C Vitamin C Yes Nathan not Co mmon [place] defined [facility] Fish Oil Fish Oil Yes Nathan not Comm on [place] defined [facility] IBUPROFEN IBUPROFEN Yes Nathan not Co mmon [place] defined [facility] Magnesium Magnesium Yes Nathan not Co mmon [place] defined [facility] Gemfibrozil Gemfibrozil No Gemfibrozi 600 MG 600 MG l 600 MG Vitamin D Vitamin D No Vitamin D traMADol traMADol No 1{table traMADol HCl 50 MG HCl 50 MG t} HCl 50 MG Vitamin C Vitamin C No Vitamin C Turmeric Turmeric No Turmeric Letrozole Letrozole No 1{table QD Letrozole 2.5 MG 2.5 MG t} 2.5 MG Magnesium Magnesium No Magnesium Diclofenac Diclofenac No Diclofenac Sodium 1 % Sodium 1 % Sodium 1 % Lisinopril Lisinopril No Lisinopril 2.5 MG 2.5 MG 2.5 MG Fish Oil Fish Oil No Fish Oil Gemfibrozil Gemfibrozil No 1{table QD Gemfibrozi 600 MG 600 MG t} l 600 MG IBUPROFEN IBUPROFEN No IBUPROFEN Vitamin B Vitamin B No Vitamin B Complex Complex Complex Gemfibrozil Gemfibrozil No 1{table QD Gemfibrozi 600 MG 600 MG t} l 600 MG Magnesium Magnesium No Magnesium Turmeric Turmeric No Turmeric Vitamin B Vitamin B No Vitamin B Complex Complex Complex IBUPROFEN IBUPROFEN No IBUPROFEN Fish Oil Fish Oil No Fish Oil Gemfibrozil Gemfibrozil No Gemfibrozi 600 MG 600 MG l 600 MG Diclofenac Diclofenac No Diclofenac Sodium 1 % Sodium 1 % Sodium 1 % Vitamin D Vitamin D No Vitamin D Lisinopril Lisinopril No Lisinopril 2.5 MG 2.5 MG 2.5 MG Vitamin C Vitamin C No Vitamin C traMADol traMADol No 1{table traMADol HCl 50 MG HCl 50 MG t} HCl 50 MG Letrozole Letrozole No 1{table QD Letrozole 2.5 MG 2.5 MG t} 2.5 MG traMADol traMADol No 1{table traMADol HCl 50 MG HCl 50 MG t} HCl 50 MG Diclofenac Diclofenac No Diclofenac Sodium 1 % Sodium 1 % Sodium 1 % Vitamin D Vitamin D No Vitamin D Magnesium Magnesium No Magnesium Lisinopril Lisinopril No 1{table BID Lisinopril 2.5 MG 2.5 MG t} 2.5 MG Turmeric Turmeric No Turmeric IBUPROFEN IBUPROFEN No IBUPROFEN Letrozole Letrozole No 1{table QD Letrozole 2.5 MG 2.5 MG t} 2.5 MG Fish Oil Fish Oil No Fish Oil Gemfibrozil Gemfibrozil No Gemfibrozi 600 MG 600 MG l 600 MG Vitamin B Vitamin B No Vitamin B Complex Complex Complex Gemfibrozil Gemfibrozil No 1{table QD Gemfibrozi 600 MG 600 MG t} l 600 MG Lisinopril Lisinopril No Lisinopril 2.5 MG 2.5 MG 2.5 MG Vitamin C Vitamin C No Vitamin C Vitamin C Vitamin C No Vitamin C Magnesium Magnesium No Magnesium traMADol traMADol No 1{table traMADol HCl 50 MG HCl 50 MG t} HCl 50 MG Lisinopril Lisinopril No Lisinopril 2.5 MG 2.5 MG 2.5 MG Gemfibrozil Gemfibrozil No 1{table QD Gemfibrozi 600 MG 600 MG t} l 600 MG Vitamin B Vitamin B No Vitamin B Complex Complex Complex Vitamin D Vitamin D No Vitamin D Diclofenac Diclofenac No Diclofenac Sodium 1 % Sodium 1 % Sodium 1 % IBUPROFEN IBUPROFEN No IBUPROFEN Gemfibrozil Gemfibrozil No Gemfibrozi 600 MG 600 MG l 600 MG Fish Oil Fish Oil No Fish Oil Lisinopril Lisinopril No 1{table BID Lisinopril 2.5 MG 2.5 MG t} 2.5 MG Letrozole Letrozole No 1{table QD Letrozole 2.5 MG 2.5 MG t} 2.5 MG Turmeric Turmeric No Turmeric Vitamin C Vitamin C No Vitamin C Turmeric Turmeric No Turmeric Diclofenac Diclofenac No Diclofenac Sodium 1 % Sodium 1 % Sodium 1 % IBUPROFEN IBUPROFEN No IBUPROFEN Lisinopril Lisinopril No Lisinopril 2.5 MG 2.5 MG 2.5 MG Vitamin B Vitamin B No Vitamin B Complex Complex Complex Vitamin D Vitamin D No Vitamin D Gemfibrozil Gemfibrozil No Gemfibrozi 600 MG 600 MG l 600 MG Magnesium Magnesium No Magnesium Fish Oil Fish Oil No Fish Oil Letrozole Letrozole No 1{table QD Letrozole 2.5 MG 2.5 MG t} 2.5 MG Gemfibrozil Gemfibrozil No 1{table QD Gemfibrozi 600 MG 600 MG t} l 600 MG Vitamin C Vitamin C No Vitamin C Turmeric Turmeric No Turmeric Diclofenac Diclofenac No Diclofenac Sodium 1 % Sodium 1 % Sodium 1 % IBUPROFEN IBUPROFEN No IBUPROFEN Lisinopril Lisinopril No Lisinopril 2.5 MG 2.5 MG 2.5 MG Vitamin B Vitamin B No Vitamin B Complex Complex Complex Vitamin D Vitamin D No Vitamin D Gemfibrozil Gemfibrozil No Gemfibrozi 600 MG 600 MG l 600 MG Magnesium Magnesium No Magnesium Fish Oil Fish Oil No Fish Oil Letrozole Letrozole No 1{table QD Letrozole 2.5 MG 2.5 MG t} 2.5 MG Gemfibrozil Gemfibrozil No 1{table QD Gemfibrozi 600 MG 600 MG t} l 600 MG Vitamin C Vitamin C No Vitamin C Turmeric Turmeric No Turmeric Diclofenac Diclofenac No Diclofenac Sodium 1 % Sodium 1 % Sodium 1 % IBUPROFEN IBUPROFEN No IBUPROFEN Lisinopril Lisinopril No Lisinopril 2.5 MG 2.5 MG 2.5 MG Vitamin B Vitamin B No Vitamin B Complex Complex Complex Vitamin D Vitamin D No Vitamin D Gemfibrozil Gemfibrozil No Gemfibrozi 600 MG 600 MG l 600 MG Magnesium Magnesium No Magnesium Fish Oil Fish Oil No Fish Oil Letrozole Letrozole No 1{table QD Letrozole 2.5 MG 2.5 MG t} 2.5 MG Gemfibrozil Gemfibrozil No 1{table QD Gemfibrozi 600 MG 600 MG t} l 600 MG Lisinopril Lisinopril No Lisinopril 2.5 MG 2.5 MG 2.5 MG Letrozole Letrozole No 1{table QD Letrozole 2.5 MG 2.5 MG t} 2.5 MG Diclofenac Diclofenac No Diclofenac Sodium 1 % Sodium 1 % Sodium 1 % Gemfibrozil Gemfibrozil No 1{table QD Gemfibrozi 600 MG 600 MG t} l 600 MG Magnesium Magnesium No Magnesium Vitamin B Vitamin B No Vitamin B Complex Complex Complex Turmeric Turmeric No Turmeric Gemfibrozil Gemfibrozil No Gemfibrozi 600 MG 600 MG l 600 MG Vitamin C Vitamin C No Vitamin C Fish Oil Fish Oil No Fish Oil Vitamin D Vitamin D No Vitamin D IBUPROFEN IBUPROFEN No IBUPROFEN Lisinopril Lisinopril No Lisinopril 2.5 MG 2.5 MG 2.5 MG Magnesium Magnesium No Magnesium Letrozole Letrozole No 1{table QD Letrozole 2.5 MG 2.5 MG t} 2.5 MG Diclofenac Diclofenac No Diclofenac Sodium 1 % Sodium 1 % Sodium 1 % Gemfibrozil Gemfibrozil No Gemfibrozi 600 MG 600 MG l 600 MG Fish Oil Fish Oil No Fish Oil Vitamin D Vitamin D No Vitamin D Turmeric Turmeric No Turmeric IBUPROFEN IBUPROFEN No IBUPROFEN Vitamin B Vitamin B No Vitamin B Complex Complex Complex Vitamin C Vitamin C No Vitamin C Letrozole Letrozole No 1{table QD Letrozole 2.5 MG 2.5 MG t} 2.5 MG Vitamin B Vitamin B No Vitamin B Complex Complex Complex Turmeric Turmeric No Turmeric Lisinopril Lisinopril No 1{table BID Lisinopril 2.5 MG 2.5 MG t} 2.5 MG Gemfibrozil Gemfibrozil No 1{table QD Gemfibrozi 600 MG 600 MG t} l 600 MG Lisinopril Lisinopril No Lisinopril 2.5 MG 2.5 MG 2.5 MG IBUPROFEN IBUPROFEN No IBUPROFEN Fish Oil Fish Oil No Fish Oil Magnesium Magnesium No Magnesium Diclofenac Diclofenac No Diclofenac Sodium 1 % Sodium 1 % Sodium 1 % Vitamin D Vitamin D No Vitamin D Gemfibrozil Gemfibrozil No Gemfibrozi 600 MG 600 MG l 600 MG Vitamin C Vitamin C No Vitamin C Vitamin B Vitamin B No Vitamin B Complex Complex Complex Gemfibrozil Gemfibrozil No 1{table QD Gemfibrozi 600 MG 600 MG t} l 600 MG Vitamin D Vitamin D No Vitamin D Gemfibrozil Gemfibrozil No Gemfibrozi 600 MG 600 MG l 600 MG Diclofenac Diclofenac No Diclofenac Sodium 1 % Sodium 1 % Sodium 1 % Vitamin C Vitamin C No Vitamin C IBUPROFEN IBUPROFEN No IBUPROFEN Lisinopril Lisinopril No Lisinopril 2.5 MG 2.5 MG 2.5 MG Magnesium Magnesium No Magnesium Turmeric Turmeric No Turmeric Fish Oil Fish Oil No Fish Oil Letrozole Letrozole No 1{table QD Letrozole 2.5 MG 2.5 MG t} 2.5 MG IBUPROFEN IBUPROFEN No IBUPROFEN Diclofenac Diclofenac No Diclofenac Sodium 1 % Sodium 1 % Sodium 1 % Magnesium Magnesium No Magnesium Letrozole Letrozole No 1{table QD Letrozole 2.5 MG 2.5 MG t} 2.5 MG traMADol traMADol No 1{table traMADol HCl 50 MG HCl 50 MG t} HCl 50 MG Gemfibrozil Gemfibrozil No 1{table QD Gemfibrozi 600 MG 600 MG t} l 600 MG Lisinopril Lisinopril No 1{table QD Lisinopril 2.5 MG 2.5 MG t} 2.5 MG Turmeric Turmeric No Turmeric Vitamin D Vitamin D No Vitamin D Lisinopril Lisinopril No Lisinopril 2.5 MG 2.5 MG 2.5 MG Vitamin C Vitamin C No Vitamin C Gemfibrozil Gemfibrozil No Gemfibrozi 600 MG 600 MG l 600 MG Vitamin B Vitamin B No Vitamin B Complex Complex Complex Fish Oil Fish Oil No Fish Oil Immunizations Ordered Immunization Filled Immunization Date Status Commen ts Source Name Name FLUZONE HIGH DOSE FLUZONE HIGH DOSE 2021-01-20 [facility]pleted [facility] [place] [facility] [place] [facility] [place] FLUZONE HIGH DOSE 2021-01-20 Completed [facility] OVER 65 OVER 65 15:51:[facility] - [facility] [place]ONE H[place] DOSE FLUZONE HIGH DOSE 2021-01-20 Completed [facility] OVER 65 OVER 65 15:51:[place] [facility] [place]ONE [place] DOSE FLUZONE HIGH DOSE 2021-01-20 Completed [facility] OVER 65 OVER 65 15:51:[place] - [facility] [place]ONE H[place] DOSE FLUZONE HIGH DOSE 2021-01-20 Completed [facility] OVER 65 OVER 65 15:51:[facility] - [facility] [place]UZONE H[place] DOSE FLUZONE HIGH DOSE 2021-01-20 Completed [facility] OVER 65 OVER 65 15:51:[place] - [facility] [place]UZONE H[place] DOSE FLUZONE HIGH DOSE 2021-01-20 Completed [facility] OVER 65 OVER 65 15:51:[place] - [facility] [place]UZONE HIGH DOSE FLUZONE HIGH DOSE 2021-01-20 Completed [facility] OVER 65 OVER 65 15:51:[place] - [facility] [place]UZONE HIGH DOSE FLUZONE HIGH DOSE 2021-01-20 Completed [facility] OVER 65 OVER 65 15:51:[place] - [facility] [place]iv[place] Bupivicaine [place] 2020-01-13 Completed [facility] 09:[facility] [place] [facility] [place] Kenalog 2020-01-13 Completed [facility] (Triamcinolone) (Triamcinolone) 09:49:00 - [facility] Lidocaine Lidocaine 2019-11-29 Completed [facility] 09:29:[facility] [place] [facility] [place] Lidocaine 2019-11-29 Completed [facility] 09:27:[facility] [place] [facility] [place] Soluspan [place] Soluspan 2019-11-29 [facility]pleted [facility] (Betamethasone) (Betamethasone) 09:27:00 [facility] Celestone Soluspan Celestone Soluspan 2019-11-29 Completed [facility] (Betamethasone) (Betamethasone) 09:26:00 - [facility] FluAD FluAD 2018-11-05 Completed [facility] 11:56:00 - [facility] FluAD FluAD 2018-11-05 Completed [facility] 11:56:00 - [facility] FluAD FluAD 2018-11-05 Completed [facility] 11:56:00 - [facility] FluAD FluAD 2018-11-05 Completed [facility] 11:56:00 - [facility] FluAD FluAD 2018-11-05 Completed [facility] 11:56:00 - [facility] FluAD FluAD 2018-11-05 Completed [facility] 11:56:00 - [facility] FluAD FluAD 2018-11-05 Completed [facility] 11:56:00 - [facility] FluAD FluAD 2018-11-05 Completed [facility] 11:56:00 - [facility] FluAD FluAD 2018-11-05 Completed [facility] 11:56:00 - [facility] FluAD Flu 2018-11-05 Completed [facility] 11:56:00 - [facility] FluAD Flu 2018-11-05 Completed [facility] 11:56:00 - [facility] FluAD FluAD 2018-11-05 Completed [facility] 11:56:00 - [facility] FluAD FluAD 2018-11-05 Completed [facility] 00:00:00 - [facility] Gentamicin 80mg Gentamicin 80mg 2017-07-15 Completed [facility] 15:40:00 [facility] Vital Signs Vital Name Observation Time Observation Value Comments Source height 2021-11-06 11:20:00 62.00 [in_i] [facility] weight 2021-11-06 11:20:00 136.0 [lb_av] [facility] temperature 2021-11-06 11:20:00 97.3 [degF] [facility] bmi 2021-11-06 11:20:00 24.87 kg/m2 [facility] oximetry 2021-11-06 11:20:00 100 % [facility] respiratory rate 2021-11-06 11:20:00 16 /min Comm on [facility] blood pressure 2021-11-06 11:20:00 130 mm[Hg] [facility] systolic [facility] blood pressure 2021-11-06 11:20:00 74 mm[Hg] [facility] diastolic [facility] height 2021-08-06 13:30:00 62.00 [in_i] [facility] weight 2021-08-06 13:30:00 135 [lb_av] [facility] bmi 2021-08-06 13:30:00 24.69 kg/m2 [facility] - [facility] blood pressure 2021-08-06 13:30:00 132 mm[Hg] [facility] - systolic [facility] blood pressure 2021-08-06 13:30:00 74 mm[Hg] Common [facility] - diastolic [facility] height 2021-07-16 11:20:00 62.00 [in_i] [facility] weight 2021-07-16 11:20:00 133.6 [lb_av] Common [facility] - [facility] temperature 2021-07-16 11:20:00 97.9 [degF] [facility] bmi 2021-07-16 11:20:00 24.43 kg/m2 Common [facility] oximetry 2021-07-16 11:20:00 97 % [facility] respiratory rate 2021-07-16 11:20:00 16 /min Comm on [facility] blood pressure 2021-07-16 11:20:00 131 mm[Hg] [facility] - systolic [facility] blood pressure 2021-07-16 11:20:00 63 mm[Hg] Common [facility] - diastolic [facility] height 2021-05-31 13:00:00 62.00 [in_i] Common [facility] weight 2021-05-31 13:00:00 132.6 [lb_av] Common [facility] temperature 2021-05-31 13:00:00 97.3 [degF] Common S [facility] bmi 2021-05-31 13:00:00 24.25 kg/m2 [facility] oximetry 2021-05-31 13:00:00 97 % [facility] respiratory rate 2021-05-31 13:00:00 18 /min Comm on [facility] blood pressure 2021-05-31 13:00:00 143 mm[Hg] Common [facility] - systolic [facility] blood pressure 2021-05-31 13:00:00 65 mm[Hg] [facility] - diastolic [facility] height 2021-01-29 13:00:00 62.00 [in_i] [facility] - [facility] weight 2021-01-29 13:00:00 138.0 [lb_av] [facility] temperature 2021-01-29 13:00:00 97.7 [degF] [facility] - [facility] bmi 2021-01-29 13:00:00 25.24 kg/m2 [facility] 2021-01-29 13:00:00 95 % Common [facility] respiratory rate 2021-01-29 13:00:00 16 /min Comm [facility] blood pressure 2021-01-29 13:00:00 130 mm[Hg] Common [facility] - systolic [facility] blood pressure 2021-01-29 13:00:00 68 mm[Hg] Common [facility] - diastolic [facility] height 2021-01-11 09:00:00 62.00 [in_i] [facility] 2021-01-11 09:00:00 139.2 [lb_av] [facility] temperature 2021-01-11 09:00:00 98 [degF] Common S [facility] bmi 2021-01-11 09:00:00 25.46 kg/m2 [facility] oximetry 2021-01-11 09:00:00 97 % [facility] blood pressure 2021-01-11 09:00:00 165 mm[Hg] [facility] - systolic [facility] blood pressure 2021-01-11 09:00:00 74 mm[Hg] [facility] - diastolic [facility] height 2020-09-28 13:40:00 62.00 [in_i] [facility] weight 2020-09-28 13:40:00 142.8 [lb_av] [facility] temperature 2020-09-28 13:40:00 97.1 [degF] [facility] bmi 2020-09-28 13:40:00 26.12 kg/m2 [facility] oximetry 2020-09-28 13:40:00 98 % [facility] respiratory rate 2020-09-28 13:40:00 18 /min [facility] - [facility] blood pressure 2020-09-28 13:40:00 126 mm[Hg] [facility] - systolic [facility] blood pressure 2020-09-28 13:40:00 70 mm[Hg] [facility] - diastolic [facility] Systolic blood 2021-02-21 17:15:09 122 mm[Hg] Univer sity of pressure Sury Meza on [facility] Diastolic blood 2021-02-21 17:15:09 69 mm[Hg] Unive rsity of pressure Sury Meza on [facility] Heart rate 2021-02-21 17:15:09 68 /min [facility] MD [facility] Body temperature 2021-02-21 17:15:09 36.61 Dinorah [facility] Respiratory rate 2021-02-21 17:15:09 18 /min [facility] Body weight 2021-02-21 17:15:09 [facility] BMI 2021-02-21 17:15:09 25.85 kg/m2 [facility] MD [facility] Procedures Procedure Date / Time Performing Clinician Source Performed MAMMO DIGITAL 2021-11-16 15:59:27 Hansa Rios Lyons o [facility] DIAGNOSTIC RIGHT W [facility]CHARIAH [facility] FREE THYROXINE 2021-02-13 17:11:00 Rowena Rios [facility] er Center THYROID STIMULATING 2021-02-13 17:11:00 Rowena Rios [facility] HORMONE [facility] er Center US HEAD NECK SOFT 2021-02-13 17:07:00 Rowena Rios [facility] TISSUE MD [facility] er Center MAMMO DIGITAL 2020-11-16 16:00:00 Steffanie Jane Lyons o f [place] DIAGNOSTIC RIGHT W ZECHARIAH KOENIG [facility] Plan of Care Planned Activity Planned Date Details Comments Source Future Scheduled 2021-12-06 COVID-19 Vaccination [facility] [place] Test 13:40:22 (3 - Pfizer risk MD [facility]) [code = Center COVID-19 Vaccination (3 - Pfizer risk series)] Future Scheduled 2021-12-06 COVID-19 Vaccination [facility] [place] Test 13:40:22 (3 - Pfizer risk MD [facility]) [code = Center COVID-19 Vaccination (3 - Pfizer risk series)] Future Scheduled 2021-12-06 COVID-19 Vaccination [facility] [place] Test 13:40:22 (3 - Pfizer risk MD [facility]) [code = Center COVID-19 Vaccination (3 - Pfizer risk series)] Future Scheduled 2021-12-06 COVID-19 Vaccination [facility] [place] Test 13:40:22 (3 - Pfizer risk MD [facility] series) [code = Center COVID-19 Vaccination (3 - Pfizer risk series)] Future Scheduled 2021-12-06 COVID-19 Vaccination [facility] [place] Test 13:40:22 (3 - Pfizer risk MD [facility]) [code = Center COVID-19 Vaccination (3 - Pfizer risk series)] Future Scheduled 2021-12-06 COVID-19 Vaccination [facility] [place] Test 13:40:22 (3 - Pfizer risk MD [facility]) [code = Center COVID-19 Vaccination (3 - Pfizer risk series)] Future Scheduled 2021-08-03 COVID-19 Vaccination [facility] [place] Test 04:38:22 (3 - Pfizer risk MD [facility]) [code = Center COVID-19 Vaccination (3 - Pfizer risk series)] Encounters Start End Encounter Admission Attending Care Care Encounter Source Date/Time Date/Time Type Type Clinicians Facility Department ID 2022-06-13 Outpatient Chayo [facility] [id number] Common 11:49:00 Rowena 26384 [facility] 2021-11-05 Outpatient Taya Perez [facility] [id number] 2 Common 08:45:00 [facility] 2021-08-07 Outpatient Perez, Na STLMLC STLMLC [id number] 2 Common 08:20:01 [facility] 2021-08-06 Outpatient Perez, Na STLMLC STLMLC [id number] 2 Common 15:19:00 [facility] 2021-07-18 Outpatient Perez, Na STLMLC STLMLC [id number] 2 Common 06:47:00 [facility] 2021-05-07 Outpatient Perez, Na STLMLC STLMLC [id number] 2 Common 16:33:01 [facility] 2021-03-07 Outpatient Perez, Na STLMLC STLMLC [id number] 2 Common 14:26:22 [id number] [facility] 2021-03-07 Outpatient Perez, Na STLMLC STLMLC [id number] 2 Common 14:25:50 [id number] [facility] 2021-03-07 Outpatient Perez, Na STLMLC STLMLC [id number] 2 Common 13:48:21 [id number] [facility] 2021-03-07 Outpatient Perez, Na STLMLC STLMLC [id number] 2 Common 13:26:33 [id number] [facility] 2021-03-07 Outpatient Perez, Na STLMLC STLMLC [id number] 2 Common 12:09:19 [id number] [facility] 2021-03-07 Outpatient Perez, Na STLMLC STLMLC [id number] 2 Common 12:06:43 [id number] [facility] 2021-03-07 Outpatient Perez, Na STLMLC STLMLC [id number] 2 Common 11:51:44 [id number] [facility] 2021-03-07 Outpatient Perez, Na STLMLC STLMLC [id number] 2 Common 11:45:44 [id number] [facility] 2021-03-07 Outpatient Perez, Na STLMLC STLMLC [id number] 2 Common 11:38:29 [id number] [facility] 2021-03-07 Outpatient Taya Perez STLMLC STLMLC [id number] 2 Common 11:07:03 [id number] [facility] 2022-02-26 2022-02-26 (TEL) STLMLC STLMLC [id number] Co mmon 00:00:00 00:00:00 [facility] 2021-11-16 2021-11-16 Ancillary Hansa Arzola 1.2.840.1 [id number] Univers 10:15:00 11:15:00 Procedure B 00591.1.1 it y of 3.412.2.7 [place] .3.558046 MD Petit [facility] 2021-11-16 2021-11-16 Ancillary Hansa Rios 1.2.840.1 [id number] Univers 10:15:00 11:15:00 Procedure B 50084.1.1 it y of 3.412.2.7 [place] .3.146294 MD Petit [facility] 2021-11-16 2021-11-16 Travel 1.2.840.1 1.2.733.788 [id number] Univers 00:00:00 00:00:00 99032.1.1 350.1.13.41 ity of 3.412.2.7 [place]3.698 [place] .3.450[place] 084.8 MD Petit [facility] 2021-11-16 2021-11-16 Travel 1.2.840.1 1.2.030.790 [id number] Univers 00:00:00 00:00:00 02681.1.1 350.1.13.41 ity of 3.412.2.[place]3.698 [place] .3.530279 084.8 MD Petit [facility] 2021-11-06 2021-11-06 OFFICE STLMLC STLMLC [id number] Co mmon 00:00:00 00:00:00 [facility] ESTAB PT - CHI LEVEL 4 [facility] 2021-09-03 2021-09-03 (TEL) STLMLC STLMLC [id number] Co mmon 00:00:00 00:00:00 [facility] 2021-08-06 2021-08-06 OFFICE STLMLC STLMLC [id number] Co mmon 00:00:00 00:00:00 [facility] ESTAB PT - CHI LEVEL 4 [facility] 2021-07-17 2021-07-17 (TEL) STLMLC STLMLC [id number] Co mmon 00:00:00 00:00:00 [facility] 2021-07-16 2021-07-16 (ESTPT) STLMLC STLMLC [id number] Co mmon 00:00:00 00:00:00 Caleb mclean Patient - [facility] 2021-07-16 2021-07-16 (TEL) STLMLC STLMLC [id number] Co mmon 00:00:00 00:00:00 [facility] 2021-05-31 2021-05-31 OFFICE STLMLC STLMLC [id number] Co mmon 00:00:00 00:00:00 VISIT [facility] ESTAB PT - CHI LEVEL 4 [facility] 2021-02-21 2021-02-21 Office Leonela Augustine 1.2.840.1 [id number] [facility] 11:40:00 12:00:00 Visit Hansa Rios 49535.1.1 ity of 3.412.2.7 [place] .3.142430 MD Posada8 [facility] 2021-02-21 2021-02-21 Travel 1.2.840.1 1.2.393.361 [id number] Univers 00:00:00 00:00:00 87885.1.1 350.1.13.41 ity of 3.412.2.7 [place]7.3.698 [place] .3.916047 084.8 MD Posada8 [facility] 2021-02-20 2021-02-20 Telemedici Jose Murrell 1.2.840.1 [id number] Univers 15:30:00 15:30:00 elsy BlakeCaden angelya 71049.1.1 ity of 3.412.2.7 [place] .3.567579 MD Posada8 [facility] 2021-02-13 2021-02-13 Ancillary JOSEFINA Rios, 1.2.840.1 [id number] Univers 10:00:00 11:00:00 Procedure Rowena Galvan 01849.1.1 i ty of 3.412.2.7 [place] .3.939373 MD Posada8 [facility] 2021-02-13 2021-02-13 Outpatient JOSEFINA RIOS [facility] [id number] 10:11:38 10:11:38 ROWENA Meza [facility] 2021-02-13 2021-02-13 Travel 1.2.840.1 1.2.420.609 [id number] Univers 00:00:00 00:00:00 63177.1.1 350.1.13.41 ity of 3.412.2.7 [place].3.698 [place] .3.789339 084.8 .8 [facility] 2021-01-29 2021-01-29 OFFICE STLMLC STLMLC [id number] Co mmon 00:00:00 00:00:00 [facility] ESTAB PT - CHI LEVEL 4 [facility] 2021-01-24 2021-01-24 Telephone Ashish, 1.2.840.1 [id number] [facility] 00:00:00 00:00:00 Laurita 77694.1.1 ity of 3.412.2.7 [place] .3.458998 MD Posada8 [facility] 2021-01-11 2021-01-11 OFFICE STLMLC STLMLC [id number] Co mmon 00:00:00 00:00:00 VISIT EST Spir it PT LEVEL 3 - [facility] 2021-01-08 2021-01-08 (TEL) STLMLC STLMLC [id number] Co mmon 00:00:00 00:00:00 [facility] - [facility] 2020-11-23 2020-11-23 Office JOSEFINA Pena, 1.2.840.1 [id number] Univers 10:00:00 11:23:23 Visit Maria 16662.1.1 ity of 3.412.2.7 [place] .3.213612 MD Petit [facility] 2020-11-23 2020-11-23 Travel 1.2.840.1 1.2.546.270 [id number] Univers 00:00:00 00:00:00 94632.1.1 350.1.13.41 ity of 3.412.2.7 [place]7.3.698 [place] .3.849393 084.8 MD Petit [facility] 2020-11-16 2020-11-16 Ancillary JOSEFINA Jane, 1.2.840.1 [id number] Univers 10:00:00 11:00:00 Procedure Steffanie 10249.1.1 i ty of 3.412.2.7 [place] .3.522712 MD Petit [facility] 2020-11-16 2020-11-16 Travel 1.2.840.1 1.2.958.395 [id number] Univers 00:00:00 00:00:00 39366.1.1 350.1.13.41 ity of 3.412.2.7 [place]7.3.698 [place] .3.192586 084.8 MD Petit [facility] 2020-09-28 2020-09-28 OFFICE STLMLC STLMLC [id number] Co mmon 00:00:00 00:00:00 [facility] ESTAB PT - CHI LEVEL 4 [facility] 2020-08-02 2020-08-02 Outpatient STLMLC STLMLC [id number] Common 00:00:00 00:00:00 [facility] - [facility] 2020-05-04 2020-05-04 Outpatient STLMLC STLMLC [id number] Common 00:00:00 00:00:00 [facility] 2020-04-29 2020-04-29 Outpatient [facility] [id number] Univers 13:25:00 13:25:00 ity [facility] 2020-04-08 2020-04-08 Outpatient [facility] [id number] Univers 13:05:00 13:05:00 ity [facility] 2020-01-13 2020-01-13 Outpatient STLMLC STLMLC [id number] Common 00:00:00 00:00:00 [facility] 2020-01-12 2020-01-12 Outpatient STLMLC STLMLC [id number] Common 00:00:00 00:00:00 [facility] 2020-01-03 2020-01-03 Outpatient STLMLC STLMLC [id number] Common 00:00:00 00:00:00 [facility] 2019-12-23 2019-12-23 Outpatient STLMLC STLMLC [id number] Common 00:00:00 00:00:00 [facility] 2019-11-29 2019-11-29 Outpatient STLMLC STLMLC [id number] Common 00:00:00 00:00:00 [facility] 2019-11-15 2019-11-15 Outpatient STLMLC STLMLC [id number] Common 00:00:00 00:00:00 [facility] 2019-11-09 2019-11-09 Outpatient STLMLC STLMLC [id number] Common 00:00:00 00:00:00 [facility] 2019-11-09 2019-11-09 Outpatient STLMLC STLMLC [id number] Common 00:00:00 00:00:00 [facility] 2019-10-26 2019-10-26 Out[facility] [id number] Common 09:39:00 09:39:00 t [facility] - [facility] 2019-10-25 2019-10-25 Out[facility] [id number] Common 15:46:00 15:46:00 t [facility] Bone [facility] Spiri t and Joint Joint - [facility] 2019-10-25 2019-10-25 Out[facility] [id number] Common 13:30:00 13:30:00 t Bone Bone and Spiri t and Joint Joint - [facility] 2019-09-30 2019-09-30 Out[facility] [id number] Common 10:40:00 10:40:[address] [facility] 2019-08-23 2019-08-23 Letter Taya Perez 1.2.840.114 [id number] 00:00:00 00:00:00 (Out) HEALTH 350.1.13.10 [facility] [id number] 2019-08-11 2019-08-11 Outpatient JOSEFINA RONDON MDA EJ [id number] 11:44:27 11:44:27 LEONELA goyal 2019-08-02 2019-08-02 Orders [facility] 1.2.840.114 [id number] 00:00:00 00:00:00 Only Unassigned, LUIS A 350.1.13.10 [place] [id number] 2019-06-30 2019-06-30 [facility] [id number] Common 10:40:00 10:40:[address] [facility] 2019-04-05 2019-04-05 Out[facility] [id number] Common 16:47:00 16:47:[address] [facility] 2019-02-09 2019-02-09 Out[facility] [id number] Common 09:40:00 09:40:[address] [facility] 2019-01-13 2019-01-13 Out[facility] [id number] Common 09:00:00 09:00:00 t Specialty/U Sp gilmar Specialty rology - [facility] /[facility]rology [facility] 2018-11-05 2018-11-05 Out[facility] [id number] Common 10:20:00 10:20:[address] [facility] 2018-09-24 2018-09-24 Orders JOEL 1.2.840.114 [id number] 00:00:00 00:00:00 Only Unassigned, LUIS A 350.1.13.10 [place] [facility] [id number] 2018-07-16 2018-07-16 Out[facility] [id number] Common 08:20:00 08:20:[address] [facility] 2018-03-20 2018-03-20 Out[facility] [id number] Common 10:30:00 10:30:[address] [facility] 2018-03-05 2018-03-05 Outpatient [facility] [id number] Common 16:27:00 16:27:00 t Specialty/U Sp gilmar Specialty rology - [facility] /[facility]rology Clinic [facility] 2017-11-24 2017-11-24 Outpatient [facility] [id number] Common 09:00:00 09:00:[address] [facility] 2017-09-15 2017-09-15 Out[facility] [id number] Common 10:30:00 10:30:[address] [facility] 2017-08-19 2017-08-19 Out[facility] [id number] Common 14:30:00 14:30:[address] [facility] 2017-08-16 2017-08-16 Out[facility] [id number] Common 17:16:00 17:16:[address] [facility] 2017-08-11 2017-08-11 Out[facility] [id number] Common 11:28:00 11:28:[address] [facility] Results This patient has no known results.
[2022-09-19] MEDS ORDERED: KETOROLAC 30 MG/ML INJ ONE (14:53)
[2022-09-19] MEDS ORDERED: ONDANSETRON 4 MG/2 ML VIAL ONE (14:54)
[2022-09-19] MEDS ORDERED: NA CHLORIDE 0.9% 1,000 ML ONE (14:54)
[2022-09-19 15:01] LABS: Specific Gravity 1.008 (1.005-1.030); Urine Bacteria None Seen /HPF (<20); Urine Bilirubin NEGATIVE (Negative); Urine Blood 1+ (Negative); Urine Clarity Clear (Clear); Urine Color Light-Yellow (Yellow); Urine Glucose NEGATIVE (Negative); Urine Mucus Slight /HPF (None Seen); Urine Protein NEGATIVE (Negative); Urine RBC <5 /HPF (None Seen); Urine Urobilinogen Normal (Normal)
[2022-09-19 15:08] LABS: Absolute Lymphocytes (CBC) 1.3 K/uL (0.7-4.9); Hematocrit 39.3 % (36.0-45.0); Lymphocytes % 31.2 % (15.3-44.8); MPV 7.6 fL (7.6-11.3); Platelets 307 thou/uL (152-406); RBC Red Blood Cell Count 4.17 M/uL (3.86-4.86)
[2022-09-19 15:26] LABS: Albumin 4.2 g/dL (3.4-5.0); Bilirubin Total 0.6 mg/dL (0.2-1.0); Potassium 3.4 mEq/L (3.5-5.1); Protein, Total 7.7 g/dL (6.4-8.2)
--- NOTE | 2022-09-19 15:35 | ER ---
Nurse's Notes [facility] Name: Goldie Eduardo Age: 77 yrs Sex: Female : 1945 Arrival Date: 09/19/2022 Time: 12:04 Bed 6 Private MD: Diagnosis: Left flank pain Presentation: 09/19 12:19 Chief complaint: Patient states: "I have sharp pain on my left stomach and radiates to mb9 my left flank. It is really painful for the past two weeks. I went to urgent care last week and they said it was Diverticulitis. They also said I have two small cysts on my left kidney and thinks it is bleeding. I tried to make a urologist but it takes too long and told me to come to the ER due to my pain". Coronavirus screen: At this time, the client does not indicate any symptoms associated with coronavirus-19. Ebola Screen: No symptoms or risks identified at this time. Initial Sepsis Screen: Does the patient meet any 2 criteria? No. Patient's initial sepsis screen is negative. Does the patient have a suspected source of infection? No. Patient's initial sepsis screen is negative. Risk Assessment: Do you want to hurt yourself or someone else? Patient reports no desire to harm self or others. Onset of symptoms was September 19, 2022. 12:19 Method Of Arrival: Ambulatory 9 12:19 Acuity: JEANNIE 3 mb9 Triage Assessment: 12:23 General: Appears uncomfortable, Behavior is cooperative. Pain: Complains of pain in mb9 abdomen Pain radiates to left flank Pain currently is 10 out of 10 on a pain scale. Quality of pain is described as sharp, shooting, throbbing, Pain began gradually, Is continuous. Neuro: Borden Agitation-Sedation Scale (RASS): 0 - Alert and Calm Level of Consciousness is awake, alert, obeys commands, Oriented to person, place, time, situation, Appropriate for age. Cardiovascular: Patient's skin is warm and dry. Respiratory: Airway is patent Respiratory effort is even, unlabored, Respiratory pattern is regular, symmetrical. GI: Abdomen is flat, non-distended, Bowel sounds present X 4 quads. Abd is soft Abdomen is tender to palpation in left upper quadrant and left lower quadrant. : No signs and/or symptoms were reported regarding the genitourinary system. Derm: Skin is pink, warm \\T\\ dry. Musculoskeletal: Range of motion: intact in all extremities. Historical: - Allergies: 12:21 Amoxicillin; mb9 12:21 Codeine; mb9 12:21 Fluconazole; mb9 12:21 IV contrast; mb9 12:21 Lexican; mb9 - Home Meds: 12:23 lisinopril Oral twice a day [Active]; gemfibrozil 600 mg Oral tablet once [Active]; mb9 - PMHx: 12:21 Hypercholesterolemia; Hypertensive disorder; mb9 12:23 breast cancer; mb9 - PSHx: 12:21 Total abdominal hysterectomy; mastectomy; mb9 - Immunization history:: Adult Immunizations up to date. - Social history:: Smoking status: Patient denies any tobacco usage or history of. Screenin:56 [facility] ED Fall Risk Assessment (Adult) History of falling in the last 3 months, ss including since admission No falls in past 3 months (0 pts). Abuse screen: Denies threats or abuse. Denies injuries from another. Nutritional screening: No deficits noted. Tuberculosis screening: Never had TB. Assessment: 14:27 Reassessment: see triage assessment. mb9 15:43 Reassessment: Patient appears in no apparent distress at this time. No changes from ss previously documented assessment. Patient states symptoms have not improved. 15:43 Reassessment: Pt verbalizes understanding importance of follow up, but appears upset ss that we did not have any abnormal findings today. Vital Signs: 12:19 BP 155 / 77; Pulse 84; Resp 18; Temp 98.6(O); Pulse Ox 99% on R/A; Weight 61.23 kg; mb9 Height 5 ft. 2 in. ; Pain 10/10; 15:36 BP 126 / 58; Pulse 59; Resp 16; Pulse Ox 99% ; ko1 12:19 Body Mass Index 24.69 (61.23 kg, 157.48 cm) mb9 12:19 Pain Scale: Adult mb9 ED Course: 12:09 Patient arrived in ED. mr 12:21 Triage completed. mb9 12:23 Arm band placed on. mb9 12:26 Antonio Rios MD is Attending Physician. sp3 14:25 Ivette Muir RN is Primary Nurse. ko1 14:56 Inserted saline lock: 20 gauge in right antecubital area, using aseptic technique. ss Blood collected. 15:36 Patient has correct armband on for positive identification. Bed in low position. Call ko1 light in reach. Side rails up X 1. Provided Education on: NA. 15:36 No provider procedures requiring assistance completed. ko1 15:43 IV discontinued, intact, bleeding controlled, No redness/swelling at site. Pressure ss dressing applied. Administered Medications: 14:56 Drug: NS 0.9% IV 1000 ml Route: IV; Rate: 1 bolus; Site: right antecubital; ss 15:44 Follow up: IV Status: Completed infusion; IV Intake: 1000ml ss 14:56 Drug: TORadol - Ketorolac IVP 15 mg Route: IVP; Site: right antecubital; ss 15:44 Follow up: Response: No adverse reaction ss 14:56 Not Given (Patient Refused): Ondansetron IVP 4 mg IVP once; over 2 minutes ss Medication: 15:36 VIS not applicable for this client. ko1 Intake: 15:44 IV: 1000ml; Total: 1000ml. ss Outcome: 15:34 Discharge ordered by . sp3 15:43 Discharged to home ambulatory. ss 15:43 Condition: good 15:43 Discharge instructions given to patient, Instructed on discharge instructions, follow up and referral plans. medication usage, Demonstrated understanding of instructions, follow-up care, medications, Prescriptions given X 1. 15:44 Patient left the ED. ss Signatures: Cesilia Greebnerg Neena Sabillon RN RN Antonio Rios MD MD sp3 Ivette Muir RN RN ko1 Cesilia Samaniego, RN RN mb9 Corrections: (The following items were deleted from the chart) 14:56 14:56 Ondansetron IVP 4 mg IVP in right antecubital ss ss
--- NOTE | 2022-09-19 15:35 | EDPHYS ---
Physician Documentation [facility] Name: Goldie Eduardo Age: 77 yrs Sex: Female : 1945 Arrival Date: 09/19/2022 Time: 12:04 Bed 6 Private MD: ED Physician Antonio Rios HPI: 09/19 15:08 This 77 yrs old Female presents to ER via Ambulatory with complaints of Flank sp3 Pain, Cyst. 15:08 77-year-old female with prior history of resolved breast cancer, hypertension, sp3 hyperlipidemia now presents to the ED with chief complaint left-sided abdominal pain off and on for 2 weeks with spasming in nature. She went to local urgent care where she had "blood work and a CT scan" performed at which point she was told she may have "bleeding in her kidney due to a cyst" and was referred here for further evaluation. Here her pain is mild and patient is in no acute distress. 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 Historical: - Allergies: 12:21 Amoxicillin; mb9 12:21 Codeine; mb9 12:21 Fluconazole; mb9 12:21 IV contrast; mb9 12:21 Lexican; mb9 - Home Meds: 12:23 lisinopril Oral twice a day [Active]; gemfibrozil 600 mg Oral tablet once [Active]; mb9 - PMHx: 12:21 Hypercholesterolemia; Hypertensive disorder; mb9 12:23 breast cancer; mb9 - PSHx: 12:21 Total abdominal hysterectomy; mastectomy; mb9 - Immunization history:: Adult Immunizations up to date. - Social history:: Smoking status: Patient denies any tobacco usage or history of. ROS: 15:09 Constitutional: Negative for fever, chills, and weight loss, Eyes: Negative for injury, sp3 pain, redness, and discharge, ENT: Negative for injury, pain, and discharge, Neck: Negative for injury, pain, and swelling, Cardiovascular: Negative for chest pain, palpitations, and edema, Respiratory: Negative for shortness of breath, cough, wheezing, and pleuritic chest pain, : Negative for injury, bleeding, discharge, and swelling, MS/Extremity: Negative for injury and deformity, Skin: Negative for injury, rash, and discoloration, Neuro: Negative for headache, weakness, numbness, tingling, and seizure, Psych: Negative for depression, anxiety, suicide ideation, homicidal ideation, and hallucinations, Allergy/Immunology: Negative for hives, rash, and allergies, Endocrine: Negative for neck swelling, polydipsia, polyuria, polyphagia, and marked weight changes, Hematologic/Lymphatic: Negative for swollen nodes, abnormal bleeding, and unusual bruising. 15:09 All other systems are negative. Exam: 15:09 Constitutional: This is a well developed, well nourished patient who is awake, alert, sp3 and in no acute distress. Head/Face: Normocephalic, atraumatic. Eyes: Pupils equal round and reactive to light, extra-ocular motions intact. Lids and lashes normal. Conjunctiva and sclera are non-icteric and not injected. Cornea within normal limits. Periorbital areas with no swelling, redness, or edema. Neck: Trachea midline, no thyromegaly or masses palpated, and no cervical lymphadenopathy. Supple, full range of motion without nuchal rigidity, or vertebral point tenderness. No Meningismus. Chest/axilla: Normal chest wall appearance and motion. Nontender with no deformity. No lesions are appreciated. Cardiovascular: Regular rate and rhythm with a normal S1 and S2. No gallops, murmurs, or rubs. Normal PMI, no JVD. No pulse deficits. Respiratory: Lungs have equal breath sounds bilaterally, clear to auscultation and percussion. No rales, rhonchi or wheezes noted. No increased work of breathing, no retractions or nasal flaring. Skin: Warm, dry with normal turgor. Normal color with no rashes, no lesions, and no evidence of cellulitis. MS/ Extremity: Pulses equal, no cyanosis. Neurovascular intact. Full, normal range of motion. Neuro: Awake and alert, GCS 15, oriented to person, place, time, and situation. Cranial nerves II-XII grossly intact. Motor strength 5/5 in all extremities. Sensory grossly intact. Cerebellar exam normal. Normal gait. Psych: Awake, alert, with orientation to person, place and time. Behavior, mood, and affect are within normal limits. 15:09 Abdomen/GI: Mild left-sided pain to the palpation without any peritoneal signs. There is no rebound or guarding noted. Patient is in no acute distress resting comfortably with normal vital signs. . Vital Signs: 12:19 BP 155 / 77; Pulse 84; Resp 18; Temp 98.6(O); Pulse Ox 99% on R/A; Weight 61.23 kg; mb9 Height 5 ft. 2 in. ; Pain 10/10; 15:36 BP 126 / 58; Pulse 59; Resp 16; Pulse Ox 99% ; ko1 12:19 Body Mass Index 24.69 (61.23 kg, 157.48 cm) mb9 12:19 Pain Scale: Adult mb9 MDM: 12:28 Patient medically screened. sp3 15:12 Data reviewed: vital signs, nurses notes, old medical records, lab test result(s), sp3 radiologic studies. ED course: 77-year-old female with left-sided abdominal pain. I had her CT scan which she brought on a disc sent to radiology and was evaluated by our radiologist who notified me that other than the renal cyst there are no other abnormalities. I am not highly suspicious for aortic pathology which was confirmed on the CT scan although it was noncontrast. Patient is having no back pain. Other possibilities are functional abdominal pain, constipation, UTI, resolved kidney stone with residual spasming, among others. Outstanding diagnostics include laboratory values and urinalysis. If workup is negative we will safely discharge patient home on oral NSAID follow-up with her PCP. I have had extensive conversation with the patient regarding differential diagnosis and evaluated pathway and she is in agreements with the plan and will follow-up as needed.. 15:34 ED course: Remainder of laboratory and urine workup is negative. We will safely sp3 discharge patient home at this time.. 09/19 12:28 Order name: CBC with Diff; Complete Time: 15:33 sp3 09/19 12:28 Order name: CMP; Complete Time: 15:33 sp3 09/19 12:28 Order name: Lipase; Complete Time: 15:33 sp3 09/19 12:28 Order name: Urinalysis w/ reflexes; Complete Time: 15:33 sp3 09/19 12:28 Order name: IV Saline Lock; Complete Time: 14:56 sp3 09/19 12:28 Order name: Labs collected and sent; Complete Time: 14:56 sp3 Administered Medications: 14:56 Drug: NS 0.9% IV 1000 ml Route: IV; Rate: 1 bolus; Site: right antecubital; ss 15:44 Follow up: IV Status: Completed infusion; IV Intake: 1000ml ss 14:56 Drug: TORadol - Ketorolac IVP 15 mg Route: IVP; Site: right antecubital; ss 15:44 Follow up: Response: No adverse reaction ss 14:56 Not Given (Patient Refused): Ondansetron IVP 4 mg IVP once; over 2 minutes ss Disposition Summary: 09/19/22 15:34 Discharge Ordered Location: Home sp3 Condition: Stable sp3 Diagnosis - Left flank pain sp3 Followup: sp3 - With: Private Physician - When: Upon discharge from the Emergency Department - Reason: Continuance of care Discharge Instructions: - Discharge Summary Sheet sp3 - Flank Pain, Adult sp3 Forms: - Medication Reconciliation Form sp3 - Thank You Letter sp3 - Antibiotic Education sp3 - Prescription Opioid Use sp3 - Patient Portal Instructions sp3 Prescriptions: - Diclofenac Sodium 75 mg Oral Tablet Sustained Release - take 1 tablet by ORAL route 2 times per day; 30 tablet; Refills: 0, Product sp3 Selection Permitted Signatures: Dispatcher [employer] EDMS Neena Sabillon RN RN Antonio Rios MD MD sp3 Cesilia Samaniego RN RN mb9 Corrections: (The following items were deleted from the chart) 15:12 15:09 Abdomen/GI: Mild left-sided pain to the palpation without any peritoneal signs. sp3 There is no rebound or guarding noted. Patient is in no acute distress resting comfortably with normal vital signs. I had her CT scan which she brought on a disc sent to radiology and was evaluated by our radiologist who notified me that other than the renal cyst there are no other abnormalities. I am not highly suspicious for aortic pathology which was confirmed on the CT scan although it was noncontrast. Patient is having no back pain. Other possibilities are functional abdominal pain, constipation, UTI, resolved kidney stone with residual spasming, among others. Outstanding diagnostics include laboratory values and urinalysis. If workup is negative we will safely discharge patient home on oral NSAID follow-up with her PCP. I have had extensive conversation with the patient regarding differential diagnosis and evaluated pathway and she is in agreements with the plan and will follow-up as needed., sp3
[2022-09-19 16:14] VITALS: TEMP 98.6; O2SAT 99
[2022-09-19 16:15] VITALS: BP 126/58
== END 2022-09-19 15:44 | disposition home or self-care (01) ==
LOC: ER 12:04
DX: R10.32 Left lower quadrant pain (principal); I10 Essential (primary) hypertension; E78.00 Pure hypercholesterolemia, unspecified; Z85.3 Personal history of malignant neoplasm of breast; Z88.1 Allergy status to other antibiotic agents; Z88.3 Allergy status to other anti-infective agents; Z88.8 Allergy status to other drugs, medicaments and biological substances; Z91.041 Radiographic dye allergy status
CPT/HCPCS: 96361; 85025; 81001; 36415; 83690; 80053; 96374; 99284; J7030; J2405